=== PATIENT | female | born 1945 | race Caucasian/White ===

== ENCOUNTER 2017-08-20 23:12 | Inpatient (IN) | payer MEDICARE, OTHER ==
[2017-08-20] MEDS: SOD CHLORIDE 0.9% 1,000 ML IV (00:30)
[2017-08-21 00:41] LABS: ADD MAN DIFF? NO
[2017-08-21 00:44] LABS: WHITE BLOOD COUNT 15.2 10^3/ul (4.8-10.8)
[2017-08-21 00:44] LABS: ABNORMAL IP MESSAGE 1; BASOPHIL # 0.1 10^3/ul (0.0-0.1); BASOPHILS % 0.4 % (0.0-2.0); EOSINOPHILS % 0.1 % (0.0-7.0); HEMATOCRIT 40.1 % (37.0-47.0); HEMOGLOBIN 12.7 g/dl (12.0-16.0); LYMPHOCYTES # 0.6 10^3/ul (0.8-2.9); LYMPHOCYTES % 3.7 % (15.0-51.0); MEAN CORPUSCULAR HEMOGLOBIN 29.7 pg (29.0-33.0); MEAN CORPUSCULAR HGB CONC 31.7 g/dl (32.0-37.0); MEAN CORPUSCULAR VOLUME 93.7 fl (82.0-101.0); MEAN PLATELET VOLUME 10.3 fl (7.4-10.4); MONOCYTE # 0.6 10^3/ul (0.3-0.9); MONOCYTES % 4.1 % (0.0-11.0); NEUTROPHIL # 13.8 10^3/ul (1.6-7.5); NEUTROPHILS % 90.9 % (39.0-77.0); PLATELET COUNT 108 10^3/UL (140-415); RED BLOOD COUNT 4.28 10^6/ul (4.20-5.40); RED CELL DISTRIBUTION WIDTH 17.2 % (11.5-14.5)
[2017-08-21 00:47] LABS: POSITIVE DIFF @See below
[2017-08-21 01:02] LABS: INR 1.03; PROTIME 13.6 Sec (11.9-14.9); PT RATIO 1.1
[2017-08-21 01:12] LABS: ALANINE AMINOTRANSFERASE 25 IU/L (13-69); ALBUMIN/GLOBULIN RATIO 1.05; ALKALINE PHOSPHATASE 118 IU/L (42-121); ANION GAP 17 (8-16); ASPARTATE AMINO TRANSFERASE 27 IU/L (15-46); BILIRUBIN,INDIRECT 0.2 mg/dl (0-1.1); BILIRUBIN,TOTAL 0.2 mg/dl (0.2-1.3); BLOOD UREA NITROGEN 31 mg/dl (7-20); CALCIUM 9.6 mg/dl (8.4-10.2); CARBON DIOXIDE 24 mmol/L (21-31); CHLORIDE 107 mmol/L (97-110); CREATININE 1.17 mg/dl (0.44-1.00); GLUCOSE 143 mg/dl (70-220); LIPASE 17 U/L (23-300); POTASSIUM 3.7 mmol/L (3.5-5.1); SODIUM 144 mmol/L (135-144); TOTAL PROTEIN 7.8 g/dl (6.1-8.1)
[2017-08-21 01:13] LABS: LACTIC ACID 1.7 mmol/L (0.5-2.0)
[2017-08-21 01:29] LABS: TROPONIN-I 0.178 ng/ml (0.00-0.12)
[2017-08-21] MEDS: IBUPROFEN 600 MG TAB PO (01:32)
[2017-08-21] MEDS: CEFTRIAXONE 1 GM/50 ML (PMX) 50 ML IVPB (01:32)
[2017-08-21] MEDS: VANCOMYCIN 1 GM (PMX) 250 ML IVPB (01:32)
[2017-08-21] MEDS: SODIUM CHLORIDE 0.9% 1L BAG IV* (01:52)
[2017-08-21 02:07] LABS: ADD UMIC YES; UR AMORPHOUS CRYSTAL FEW /HPF (NONE SEEN); UR ASCORBIC ACID NEGATIVE (NEGATIVE); UR BACTERIA FEW /HPF (NONE SEEN); UR BILIRUBIN (Dip) NEGATIVE (NEGATIVE); UR BLOOD (Dip) 2+ mg/dL (NEGATIVE); UR CLARITY TURBID (CLEAR); UR COLOR AMBER (YELLOW); UR GLUCOSE (Dip) NEGATIVE (NEGATIVE); UR KETONES (Dip) NEGATIVE (NEGATIVE); UR LEUKOCYTE ESTERASE (Dip) 3+ Leu/ul (NEGATIVE); UR NITRITE (Dip) POSITIVE (NEGATIVE); UR NONSQUAMOUS EPITHELIAL CELL 1 /HPF (NONE SEEN); UR RBC 16 /HPF (0-5); UR TOTAL PROTEIN (Dip) 2+ mg/dl (NEGATIVE); UR UROBILINOGEN (Dip) 1+ mg/dL (NEGATIVE); UR WBC > 182 /HPF (0-5)
[2017-08-21] MEDS: ASPIRIN 81 MG TAB PO (02:17)
[2017-08-21] MEDS: SOD CHLORIDE 0.9% 1,000 ML IV ×2 (03:08→21:19)
[2017-08-21] MEDS ORDERED: ALBUTEROL/IPRATROPIUM (NEB) 3 ML AMP HHN (03:30)
[2017-08-21] MEDS ORDERED: AMIKACIN IV PER PHARMACY XX (03:30)
[2017-08-21] MEDS ORDERED: BISACODYL 10 MG SUPP PR (03:30)
[2017-08-21] MEDS ORDERED: NACL 0.9% 3 ML SYG IV (03:30)
[2017-08-21 04:10] LABS: LACTIC ACID 0.9 mmol/L (0.5-2.0)
[2017-08-21] MEDS: AMIKACIN 1,000 MG in SOD CHLORIDE 0.9% 100 ML IVPB (05:49)
[2017-08-21] MEDS: PYRIDOXINE 50 MG TAB PO ×2 (06:00→09:05)
[2017-08-21 06:38] LABS: WHITE BLOOD COUNT 9.9 10^3/ul (4.8-10.8)
[2017-08-21 06:38] LABS: ABNORMAL IP MESSAGE 1; HEMATOCRIT 32.2 % (37.0-47.0); HEMOGLOBIN 10.3 g/dl (12.0-16.0); MEAN CORPUSCULAR HEMOGLOBIN 30.5 pg (29.0-33.0); MEAN CORPUSCULAR VOLUME 95.3 fl (82.0-101.0); MEAN PLATELET VOLUME 10.5 fl (7.4-10.4); PLATELET COUNT 81 10^3/UL (140-415); RED BLOOD COUNT 3.38 10^6/ul (4.20-5.40); RED CELL DISTRIBUTION WIDTH 17.2 % (11.5-14.5)
[2017-08-21 06:40] LABS: ADD MAN DIFF? YES; POSITIVE DIFF @See below
[2017-08-21 07:14] LABS: LACTIC ACID 1.4 mmol/L (0.5-2.0)
[2017-08-21 07:20] LABS: ANISOCYTOSIS 2+ (0-0); BAND NEUTROPHILS #M 2.2 10^3/ul (0.0-0.6); BAND NEUTROPHILS % (M) 23 % (0-4); LYMPHOCYTES #M 0.5 10^3/ul (0.8-2.9); LYMPHOCYTES % (M) 6 % (15-51); MICROCYTOSIS 2+ (0-0); MONOCYTE #M 0.1 10^3/ul (0.3-0.9); MONOCYTES % (M) 2 % (0-11); PLATELET ESTIMATE DECREASED; POLYCHROMASIA 3+ (0-0); REACTIVE LYMPHOCYTES% (M) 1 % (0-0); SEG NEUT #M 6.9 10^3/ul (1.6-7.5); SEGMENTED NEUTROPHILS (M) % 68 % (39-77); SMUDGE%M 2 % (0-0)
[2017-08-21 07:21] LABS: ALANINE AMINOTRANSFERASE 26 IU/L (13-69); ALBUMIN 2.9 g/dl (3.3-4.9); ALBUMIN/GLOBULIN RATIO 0.85; ALKALINE PHOSPHATASE 92 IU/L (42-121); ANION GAP 12 (8-16); ASPARTATE AMINO TRANSFERASE 21 IU/L (15-46); BILIRUBIN,INDIRECT 0.2 mg/dl (0-1.1); BILIRUBIN,TOTAL 0.2 mg/dl (0.2-1.3); BLOOD UREA NITROGEN 26 mg/dl (7-20); CALCIUM 7.8 mg/dl (8.4-10.2); CARBON DIOXIDE 20 mmol/L (21-31); CHLORIDE 115 mmol/L (97-110); CREATININE 1.04 mg/dl (0.44-1.00); GLUCOSE 148 mg/dl (70-220); MAGNESIUM 1.3 mg/dl (1.7-2.5); POTASSIUM 3.4 mmol/L (3.5-5.1); SODIUM 144 mmol/L (135-144); TOTAL PROTEIN 6.3 g/dl (6.1-8.1)
[2017-08-21 07:26] LABS: CREATINE KINASE 75 IU/L (23-200)
[2017-08-21 07:30] LABS: CK INDEX 1.1
[2017-08-21] MEDS: HYDROmorphONE 1 MG/ML SYG IV (07:37)
[2017-08-21 07:48] LABS: TROPONIN-I 0.255 ng/ml (0.00-0.12)
[2017-08-21] MEDS: SENNA TAB PO ×2 (09:00→21:56)
[2017-08-21] MEDS: METHADONE 10 MG TAB PO ×4 (09:00→21:18)
[2017-08-21] MEDS: PANTOPRAZOLE (EC) 40 MG TAB PO (09:00)
[2017-08-21] MEDS: MEROPENEM 500MG/50 ML (PMX) 50 ML IVPB (09:00)
[2017-08-21] MEDS ORDERED: HEPARIN 5,000 UNIT/0.5 ML VIAL SC (09:00)
[2017-08-21] MEDS: FERROUS SULFATE (EC) 325 MG TAB PO (09:00)
[2017-08-21] MEDS: DOCUSATE SODIUM 100 MG CAP PO ×2 (09:00→21:56)
[2017-08-21] MEDS: ASCORBIC ACID 250 MG TAB PO (09:00)
[2017-08-21] MEDS: FUROSEMIDE 40 MG TAB PO (09:00)
[2017-08-21] MEDS: MULTIVITAMINS THERAPEUTIC TAB PO (09:05)
[2017-08-21] MEDS: ZINC SULFATE 220 MG CAP PO (09:05)
[2017-08-21] MEDS: MAGNESIUM OXIDE 400 MG TAB PO ×2 (09:05→21:56)
[2017-08-21] MEDS: HYDROmorphONE 2 MG TAB PO ×4 (09:55→21:18)
[2017-08-21] MEDS: NORepinephrine 8MG/250 ML (PMX 250 ML IV (14:43)
[2017-08-21] MEDS: KETOROLAC 15 MG INJ IV (16:36)
[2017-08-21 16:54] LABS: CREATINE KINASE 76 IU/L (23-200)
[2017-08-21 17:07] LABS: CK INDEX 1.3; CK-MB 0.99 ng/ml (0.0-2.4); TROPONIN-I 0.125 ng/ml (0.00-0.12)
[2017-08-21] MEDS: ACETAMINOPHEN 325 MG TAB PO (17:45)
[2017-08-21] MEDS: DULOXETINE 30 MG CAP DR PO (19:14)
[2017-08-21] MEDS: LIDOCAINE 1% (MPF) 5 ML VIAL SC (19:40)
[2017-08-21] MEDS: SOD CHLORIDE 0.9% 100 ML (20:30)
[2017-08-21] MEDS: RIVAROXABAN 20 MG TABLET PO (21:21)
[2017-08-21 21:48] LABS: AMIKACIN RANDOM 16.2 mg/L
[2017-08-21] MEDS: morphine 2 MG INJ IV (21:49)
[2017-08-21] MEDS: TAMSULOSIN (SR) 0.4 MG CAP PO (21:56)
[2017-08-21] MEDS ORDERED: PENDING SANTYL ORDER FOR WOUND CARE XX (23:00)
[2017-08-21] MEDS: NS + KCL 20 MEQ 1,000 ML IV (23:27)
[2017-08-22] MEDS: MEROPENEM 500MG/50 ML (PMX) 50 ML IVPB ×3 (00:24→21:00)
[2017-08-22] MEDS: PYRIDOXINE 50 MG TAB PO ×4 (00:24→22:06)
[2017-08-22] MEDS: KETOROLAC 15 MG INJ IV ×3 (00:38→14:41)
[2017-08-22] MEDS ORDERED: DEXTROSE 50% 50 ML SYRINGE IV ×2 (01:00)
[2017-08-22] MEDS ORDERED: COLLAGENASE TOP (01:00)
[2017-08-22] MEDS ORDERED: GLUCOSE GEL 15 GRAM TUBE PO ×2 (01:00)
[2017-08-22] MEDS ORDERED: GLUCOSE GEL 15 GRAM TUBE BUCCAL (01:00)
[2017-08-22] MEDS ORDERED: GLUCAGON 1 MG INJ IM (01:00)
[2017-08-22] MEDS: NS + KCL 20 MEQ 1,000 ML IV ×3 (02:00→21:57)
[2017-08-22] MEDS: HYDROmorphONE 2 MG TAB PO ×3 (02:07→17:10)
[2017-08-22] MEDS: ACCU-CHEK XX (02:09)
[2017-08-22] MEDS: ACETAMINOPHEN 325 MG TAB PO ×3 (04:13→18:29)
[2017-08-22 05:48] LABS: ADD MAN DIFF? NO
[2017-08-22 06:01] LABS: WHITE BLOOD COUNT 13.4 10^3/ul (4.8-10.8)
[2017-08-22 06:01] LABS: ABNORMAL IP MESSAGE 1; BASOPHIL # 0.1 10^3/ul (0.0-0.1); BASOPHILS % 0.4 % (0.0-2.0); EOSINOPHILS # 0.2 10^3/ul (0.0-0.5); EOSINOPHILS % 1.8 % (0.0-7.0); HEMATOCRIT 31.3 % (37.0-47.0); HEMOGLOBIN 9.9 g/dl (12.0-16.0); LYMPHOCYTES # 1.6 10^3/ul (0.8-2.9); LYMPHOCYTES % 12.2 % (15.0-51.0); MEAN CORPUSCULAR HEMOGLOBIN 30.5 pg (29.0-33.0); MEAN CORPUSCULAR HGB CONC 31.6 g/dl (32.0-37.0); MEAN CORPUSCULAR VOLUME 96.3 fl (82.0-101.0); MONOCYTES % 7.2 % (0.0-11.0); NEUTROPHIL # 10.4 10^3/ul (1.6-7.5); NEUTROPHILS % 77.8 % (39.0-77.0); PLATELET COUNT 57 10^3/UL (140-415); RED BLOOD COUNT 3.25 10^6/ul (4.20-5.40); RED CELL DISTRIBUTION WIDTH 17.7 % (11.5-14.5)
[2017-08-22 06:09] LABS: CHOL/HDL RATIO 5.2 RATIO; HDL CHOLESTEROL 14 mg/dl (33-92); TRIGLYCERIDES 350 mg/dl (0-149)
[2017-08-22 06:09] LABS: CHOLESTEROL 74 mg/dl (100-200)
[2017-08-22 06:10] LABS: CREATINE KINASE 46 IU/L (23-200)
[2017-08-22 06:19] LABS: ANION GAP 14 (8-16); BLOOD UREA NITROGEN 26 mg/dl (7-20); CALCIUM 7.7 mg/dl (8.4-10.2); CARBON DIOXIDE 20 mmol/L (21-31); CHLORIDE 116 mmol/L (97-110); CREATININE 0.96 mg/dl (0.44-1.00); GLUCOSE 170 mg/dl (70-220); MAGNESIUM 1.7 mg/dl (1.7-2.5); POTASSIUM 3.7 mmol/L (3.5-5.1); SODIUM 146 mmol/L (135-144)
[2017-08-22 06:24] LABS: CK INDEX 2.6; CK-MB 1.18 ng/ml (0.0-2.4)
[2017-08-22 07:02] LABS: POSITIVE DIFF @See below
[2017-08-22] MEDS: DOCUSATE SODIUM 100 MG CAP PO ×2 (08:11→20:44)
[2017-08-22] MEDS: DULOXETINE 30 MG CAP DR PO (08:11)
[2017-08-22] MEDS: SENNA TAB PO ×2 (08:12→20:44)
[2017-08-22] MEDS: ASCORBIC ACID 250 MG TAB PO (08:12)
[2017-08-22] MEDS: METHADONE 10 MG TAB PO ×3 (08:12→20:45)
[2017-08-22] MEDS: ZINC SULFATE 220 MG CAP PO (08:12)
[2017-08-22] MEDS: MULTIVITAMINS THERAPEUTIC TAB PO (08:13)
[2017-08-22] MEDS: FERROUS SULFATE (EC) 325 MG TAB PO (08:13)
[2017-08-22] MEDS: PANTOPRAZOLE (EC) 40 MG TAB PO (08:13)
[2017-08-22] MEDS: FUROSEMIDE 40 MG TAB PO (08:13)
[2017-08-22] MEDS: INSULIN GLARGINE [LANtus] 3 ML PEN SC (08:20)
[2017-08-22] MEDS: INSULIN ASPART [NOVOLOG] 3 ML PEN SC ×4 (08:21→20:47)
[2017-08-22] MEDS: MAGNESIUM OXIDE 400 MG TAB PO ×2 (08:30→21:56)
[2017-08-22] MEDS: COLLAGENASE TOP (09:00)
[2017-08-22] MEDS: COLLAGENASE 30 GM TUBE TOP (09:22)
[2017-08-22] MEDS: morphine 2 MG INJ IV (09:54)
[2017-08-22] MEDS: BALSAM PERU/CASTOR OIL 60 GM TUBE TOP (11:30)
[2017-08-22] MEDS: RIVAROXABAN 20 MG TABLET PO (17:10)
[2017-08-22] MEDS: TAMSULOSIN (SR) 0.4 MG CAP PO (20:44)
[2017-08-22] MEDS: morphine LIQ (10 MG/5 ML) CUP PO (22:16)
[2017-08-23] MEDS: ACCU-CHEK XX (02:00)
[2017-08-23] MEDS: PYRIDOXINE 50 MG TAB PO ×3 (05:06→21:50)
[2017-08-23] MEDS: HYDROmorphONE 2 MG TAB PO ×4 (05:06→17:10)
[2017-08-23] MEDS: AMIKACIN 1,000 MG in DEXTROSE 5% 100 ML IVPB (06:19)
[2017-08-23 07:20] LABS: ADD MAN DIFF? NO
[2017-08-23 07:29] LABS: ABNORMAL IP MESSAGE 1; BASOPHILS % 0.7 % (0.0-2.0); EOSINOPHILS # 0.2 10^3/ul (0.0-0.5); EOSINOPHILS % 2.7 % (0.0-7.0); HEMATOCRIT 30.1 % (37.0-47.0); HEMOGLOBIN 9.5 g/dl (12.0-16.0); LYMPHOCYTES # 0.8 10^3/ul (0.8-2.9); LYMPHOCYTES % 12.8 % (15.0-51.0); MEAN CORPUSCULAR HGB CONC 31.6 g/dl (32.0-37.0); MEAN PLATELET VOLUME 12.2 fl (7.4-10.4); MONOCYTE # 0.5 10^3/ul (0.3-0.9); MONOCYTES % 8.9 % (0.0-11.0); NEUTROPHIL # 4.4 10^3/ul (1.6-7.5); NEUTROPHILS % 74.4 % (39.0-77.0); PLATELET COUNT 45 10^3/UL (140-415); RED BLOOD COUNT 3.17 10^6/ul (4.20-5.40); RED CELL DISTRIBUTION WIDTH 17.3 % (11.5-14.5)
[2017-08-23 07:29] LABS: WHITE BLOOD COUNT 5.9 10^3/ul (4.8-10.8)
[2017-08-23 07:33] LABS: POSITIVE DIFF @See below
[2017-08-23 07:58] LABS: ANION GAP 12 (8-16); BLOOD UREA NITROGEN 22 mg/dl (7-20); CALCIUM 8.1 mg/dl (8.4-10.2); CARBON DIOXIDE 21 mmol/L (21-31); CHLORIDE 117 mmol/L (97-110); CREATININE 1.07 mg/dl (0.44-1.00); GLUCOSE 169 mg/dl (70-220); POTASSIUM 4.4 mmol/L (3.5-5.1); SODIUM 146 mmol/L (135-144)
[2017-08-23] MEDS: MEROPENEM 500MG/50 ML (PMX) 50 ML IVPB (08:13)
[2017-08-23] MEDS: MAGNESIUM OXIDE 400 MG TAB PO ×2 (08:13→20:48)
[2017-08-23] MEDS: DOCUSATE SODIUM 100 MG CAP PO ×2 (08:13→20:48)
[2017-08-23] MEDS: PANTOPRAZOLE (EC) 40 MG TAB PO (08:13)
[2017-08-23] MEDS: DULOXETINE 30 MG CAP DR PO (08:13)
[2017-08-23] MEDS: ZINC SULFATE 220 MG CAP PO (08:13)
[2017-08-23] MEDS: ASCORBIC ACID 250 MG TAB PO (08:13)
[2017-08-23] MEDS: SENNA TAB PO ×2 (08:13→20:48)
[2017-08-23] MEDS: MULTIVITAMINS THERAPEUTIC TAB PO (08:13)
[2017-08-23] MEDS: FERROUS SULFATE (EC) 325 MG TAB PO (08:13)
[2017-08-23] MEDS: METHADONE 10 MG TAB PO ×4 (08:14→20:49)
[2017-08-23] MEDS: BALSAM PERU/CASTOR OIL 60 GM TUBE TOP (08:14)
[2017-08-23] MEDS: FUROSEMIDE 40 MG TAB PO (08:14)
[2017-08-23] MEDS: COLLAGENASE TOP (08:15)
[2017-08-23] MEDS: INSULIN GLARGINE [LANtus] 3 ML PEN SC (08:24)
[2017-08-23] MEDS: INSULIN ASPART [NOVOLOG] 3 ML PEN SC ×4 (08:25→21:00)
[2017-08-23] MEDS: NS + KCL 20 MEQ 1,000 ML IV ×2 (09:29→17:10)
[2017-08-23] MEDS: ACETAMINOPHEN 325 MG TAB PO ×2 (15:13→21:47)
[2017-08-23] MEDS: RIVAROXABAN 20 MG TABLET PO (17:10)
[2017-08-23] MEDS: TAMSULOSIN (SR) 0.4 MG CAP PO (20:51)
[2017-08-24] MEDS: ACCU-CHEK XX (02:00)
[2017-08-24] MEDS: HYDROmorphONE 2 MG TAB PO ×4 (04:31→17:09)
[2017-08-24] MEDS: NS + KCL 20 MEQ 1,000 ML IV ×2 (04:32→13:53)
[2017-08-24] MEDS: PYRIDOXINE 50 MG TAB PO ×3 (05:23→21:43)
[2017-08-24 06:04] LABS: ADD MAN DIFF? NO
[2017-08-24 06:10] LABS: WHITE BLOOD COUNT 5.7 10^3/ul (4.8-10.8)
[2017-08-24 06:10] LABS: ABNORMAL IP MESSAGE 1; BASOPHILS % 0.7 % (0.0-2.0); EOSINOPHILS # 0.2 10^3/ul (0.0-0.5); LYMPHOCYTES # 1.2 10^3/ul (0.8-2.9); LYMPHOCYTES % 20.2 % (15.0-51.0); MEAN CORPUSCULAR HEMOGLOBIN 29.4 pg (29.0-33.0); MEAN CORPUSCULAR HGB CONC 31.3 g/dl (32.0-37.0); MEAN CORPUSCULAR VOLUME 94.1 fl (82.0-101.0); MEAN PLATELET VOLUME 10.9 fl (7.4-10.4); MONOCYTE # 0.6 10^3/ul (0.3-0.9); MONOCYTES % 9.8 % (0.0-11.0); NEUTROPHIL # 3.8 10^3/ul (1.6-7.5); NEUTROPHILS % 65.6 % (39.0-77.0); RED CELL DISTRIBUTION WIDTH 16.5 % (11.5-14.5)
[2017-08-24 06:49] LABS: PLATELET COUNT 69 10^3/UL (140-415); POSITIVE DIFF @See below
[2017-08-24 07:07] LABS: ANION GAP 12 (8-16); BLOOD UREA NITROGEN 22 mg/dl (7-20); CALCIUM 8.2 mg/dl (8.4-10.2); CARBON DIOXIDE 25 mmol/L (21-31); CHLORIDE 111 mmol/L (97-110); CREATININE 0.96 mg/dl (0.44-1.00); GLUCOSE 151 mg/dl (70-220); MAGNESIUM 1.7 mg/dl (1.7-2.5); PHOSPHORUS 2.6 mg/dl (2.5-4.9); POTASSIUM 3.8 mmol/L (3.5-5.1); SODIUM 144 mmol/L (135-144)
[2017-08-24] MEDS: METHADONE 10 MG TAB PO ×4 (08:14→20:48)
[2017-08-24] MEDS: DULOXETINE 30 MG CAP DR PO (08:14)
[2017-08-24] MEDS: DOCUSATE SODIUM 100 MG CAP PO ×2 (08:15→20:48)
[2017-08-24] MEDS: FERROUS SULFATE (EC) 325 MG TAB PO (08:15)
[2017-08-24] MEDS: COLLAGENASE TOP (08:15)
[2017-08-24] MEDS: ZINC SULFATE 220 MG CAP PO (08:15)
[2017-08-24] MEDS: ASCORBIC ACID 250 MG TAB PO (08:15)
[2017-08-24] MEDS: MULTIVITAMINS THERAPEUTIC TAB PO (08:15)
[2017-08-24] MEDS: SENNA TAB PO ×2 (08:15→20:47)
[2017-08-24] MEDS: FUROSEMIDE 40 MG TAB PO (08:15)
[2017-08-24] MEDS: PANTOPRAZOLE (EC) 40 MG TAB PO (08:15)
[2017-08-24] MEDS: MAGNESIUM OXIDE 400 MG TAB PO ×2 (08:15→20:48)
[2017-08-24] MEDS: BALSAM PERU/CASTOR OIL 60 GM TUBE TOP (08:16)
[2017-08-24] MEDS: INSULIN GLARGINE [LANtus] 3 ML PEN SC (08:17)
[2017-08-24] MEDS: INSULIN ASPART [NOVOLOG] 3 ML PEN SC ×4 (08:17→20:48)
[2017-08-24] MEDS: ACETAMINOPHEN 325 MG TAB PO ×2 (09:27→22:10)
[2017-08-24] MEDS: RIVAROXABAN 20 MG TABLET PO (17:09)
[2017-08-24] MEDS: TAMSULOSIN (SR) 0.4 MG CAP PO (20:48)
[2017-08-25] MEDS: METHADONE 10 MG TAB PO ×3 (00:18→14:08)
[2017-08-25] MEDS: HYDROmorphONE 2 MG TAB PO ×3 (00:18→11:40)
[2017-08-25] MEDS: NS + KCL 20 MEQ 1,000 ML IV (00:18)
[2017-08-25] MEDS: ACCU-CHEK XX (02:00)
[2017-08-25] MEDS: PYRIDOXINE 50 MG TAB PO ×2 (05:14→14:00)
[2017-08-25 05:21] LABS: ADD MAN DIFF? NO
[2017-08-25 05:27] LABS: ABNORMAL IP MESSAGE 1; BASOPHILS % 0.6 % (0.0-2.0); EOSINOPHILS # 0.2 10^3/ul (0.0-0.5); EOSINOPHILS % 2.6 % (0.0-7.0); HEMOGLOBIN 9.8 g/dl (12.0-16.0); LYMPHOCYTES # 1.4 10^3/ul (0.8-2.9); LYMPHOCYTES % 23.3 % (15.0-51.0); MEAN CORPUSCULAR HEMOGLOBIN 29.8 pg (29.0-33.0); MEAN CORPUSCULAR HGB CONC 32.7 g/dl (32.0-37.0); MEAN CORPUSCULAR VOLUME 91.2 fl (82.0-101.0); MEAN PLATELET VOLUME 10.7 fl (7.4-10.4); MONOCYTE # 0.6 10^3/ul (0.3-0.9); NEUTROPHIL # 3.9 10^3/ul (1.6-7.5); PLATELET COUNT 74 10^3/UL (140-415); RED BLOOD COUNT 3.29 10^6/ul (4.20-5.40); RED CELL DISTRIBUTION WIDTH 15.9 % (11.5-14.5)
[2017-08-25 05:27] LABS: WHITE BLOOD COUNT 6.2 10^3/ul (4.8-10.8)
[2017-08-25 05:36] LABS: POSITIVE DIFF @See below
[2017-08-25 05:46] LABS: ANION GAP 11 (8-16); BLOOD UREA NITROGEN 19 mg/dl (7-20); CALCIUM 8.5 mg/dl (8.4-10.2); CARBON DIOXIDE 28 mmol/L (21-31); CHLORIDE 108 mmol/L (97-110); CREATININE 0.87 mg/dl (0.44-1.00); GLUCOSE 155 mg/dl (70-220); MAGNESIUM 1.7 mg/dl (1.7-2.5); PHOSPHORUS 2.7 mg/dl (2.5-4.9); POTASSIUM 3.5 mmol/L (3.5-5.1); SODIUM 143 mmol/L (135-144)
[2017-08-25] MEDS: INSULIN ASPART [NOVOLOG] 3 ML PEN SC ×2 (08:00→12:03)
[2017-08-25] MEDS: INSULIN GLARGINE [LANtus] 3 ML PEN SC (08:00)
[2017-08-25] MEDS: SENNA TAB PO (08:26)
[2017-08-25] MEDS: DULOXETINE 30 MG CAP DR PO (08:26)
[2017-08-25] MEDS: DOCUSATE SODIUM 100 MG CAP PO (08:26)
[2017-08-25] MEDS: FERROUS SULFATE (EC) 325 MG TAB PO (08:26)
[2017-08-25] MEDS: MULTIVITAMINS THERAPEUTIC TAB PO (08:26)
[2017-08-25] MEDS: ZINC SULFATE 220 MG CAP PO (08:26)
[2017-08-25] MEDS: PANTOPRAZOLE (EC) 40 MG TAB PO (08:26)
[2017-08-25] MEDS: FUROSEMIDE 40 MG TAB PO (08:29)
[2017-08-25] MEDS: ASCORBIC ACID 250 MG TAB PO (08:29)
[2017-08-25] MEDS: MAGNESIUM OXIDE 400 MG TAB PO (08:29)
[2017-08-25] MEDS: BALSAM PERU/CASTOR OIL 60 GM TUBE TOP (08:31)
[2017-08-25] MEDS: COLLAGENASE TOP (09:00)
[2017-08-25] MEDS: AMIKACIN 1,000 MG in DEXTROSE 5% 100 ML IVPB (09:48)
[2017-08-25] MEDS: POTASSIUM CHLORIDE 20 MEQ in SOD CHLORIDE 0.9% 1,000 ML IV (10:00)
[2017-08-25] MEDS: ONDANSETRON 4 MG INJ IV (11:40)
[2017-08-25] MEDS: ACETAMINOPHEN 325 MG TAB PO (12:46)
== END 2017-08-25 15:48 | DRG 871 ==
LOC: E/R 23:12 → ICU 08-21 01:32 → MS4 08-22 18:25
PROVIDERS: Internal Medicine
PROC: 05H933Z Insertion of Infusion Device into Right Brachial Vein, Percutaneous Approach (ICD-10-PCS; principal; 2017-08-21)
PROC: B54MZZA Ultrasonography of Right Upper Extremity Veins, Guidance (ICD-10-PCS; 2017-08-21)
DX: A41.51 Sepsis due to Escherichia coli [E. coli] (principal); R65.21 Severe sepsis with septic shock; I21.A1 Myocardial infarction type 2; D69.6 Thrombocytopenia, unspecified; I11.0 Hypertensive heart disease with heart failure; I50.9 Heart failure, unspecified; E11.51 Type 2 diabetes mellitus with diabetic peripheral angiopathy without gangrene; N39.0 Urinary tract infection, site not specified; J44.1 Chronic obstructive pulmonary disease with (acute) exacerbation; E66.01 Morbid (severe) obesity due to excess calories; Z99.81 Dependence on supplemental oxygen; Z16.10 Resistance to unspecified beta lactam antibiotics; Z86.718 Personal history of other venous thrombosis and embolism; Z86.711 Personal history of pulmonary embolism; Z79.01 Long term (current) use of anticoagulants; M25.551 Pain in right hip; G89.4 Chronic pain syndrome; Z99.3 Dependence on wheelchair; Z87.891 Personal history of nicotine dependence; D64.9 Anemia, unspecified; Z68.36 Body mass index [BMI] 36.0-36.9, adult; Z95.0 Presence of cardiac pacemaker; N28.9 Disorder of kidney and ureter, unspecified; Z91.19 Patient's noncompliance with other medical treatment and regimen; Z87.440 Personal history of urinary (tract) infections; M19.90 Unspecified osteoarthritis, unspecified site; N76.1 Subacute and chronic vaginitis; I87.2 Venous insufficiency (chronic) (peripheral); K59.00 Constipation, unspecified; Z72.0 Tobacco use; Z91.11 Patient's noncompliance with dietary regimen; F41.9 Anxiety disorder, unspecified; F32.9 Major depressive disorder, single episode, unspecified
CPT/HCPCS: 36569; 71045; 73510; 76937; 80048; 80053; 80061; 80150; 81001; 82550; 82553; 82962; 83605; 83690; 83735; 84100; 84484; 85025; 85610; 85730; 87040; 87081; 87086; 87400; 93005; 93306; 96361; 96365; 96366; 96368; 96375; 99291-25

== ENCOUNTER 2017-09-04 16:38 | Inpatient (IN) | payer MEDICARE, OTHER ==
[2017-09-04] MEDS: SOD CHLORIDE 0.9% 1,000 ML IV (17:17)
[2017-09-04 17:23] LABS: ADD MAN DIFF? NO
[2017-09-04 17:25] LABS: WHITE BLOOD COUNT 11.7 10^3/ul (4.8-10.8)
[2017-09-04 17:25] LABS: BASOPHIL # 0.1 10^3/ul (0.0-0.1); BASOPHILS % 0.5 % (0.0-2.0); EOSINOPHILS # 0.3 10^3/ul (0.0-0.5); EOSINOPHILS % 2.3 % (0.0-7.0); HEMATOCRIT 38.8 % (37.0-47.0); HEMOGLOBIN 11.9 g/dl (12.0-16.0); LYMPHOCYTES # 1.3 10^3/ul (0.8-2.9); LYMPHOCYTES % 10.9 % (15.0-51.0); MEAN CORPUSCULAR HEMOGLOBIN 28.9 pg (29.0-33.0); MEAN CORPUSCULAR HGB CONC 30.7 g/dl (32.0-37.0); MEAN CORPUSCULAR VOLUME 94.2 fl (82.0-101.0); MEAN PLATELET VOLUME 10.9 fl (7.4-10.4); MONOCYTE # 1.1 10^3/ul (0.3-0.9); MONOCYTES % 9.1 % (0.0-11.0); NEUTROPHILS % 76.9 % (39.0-77.0); PLATELET COUNT 171 10^3/UL (140-415); RED BLOOD COUNT 4.12 10^6/ul (4.20-5.40); RED CELL DISTRIBUTION WIDTH 15.9 % (11.5-14.5)
[2017-09-04 17:47] LABS: ALANINE AMINOTRANSFERASE 24 IU/L (13-69); ALBUMIN 3.9 g/dl (3.3-4.9); ALBUMIN/GLOBULIN RATIO 1.08; ALKALINE PHOSPHATASE 117 IU/L (42-121); ANION GAP 19 (8-16); ASPARTATE AMINO TRANSFERASE 34 IU/L (15-46); BLOOD UREA NITROGEN 53 mg/dl (7-20); CALCIUM 8.4 mg/dl (8.4-10.2); CARBON DIOXIDE 22 mmol/L (21-31); CHLORIDE 104 mmol/L (97-110); CREATININE 2.22 mg/dl (0.44-1.00); GLUCOSE 118 mg/dl (70-220); LIPASE 33 U/L (23-300); POTASSIUM 4.8 mmol/L (3.5-5.1); SODIUM 140 mmol/L (135-144); TOTAL PROTEIN 7.5 g/dl (6.1-8.1)
[2017-09-04] MEDS: ONDANSETRON 4 MG INJ IV (19:25)
[2017-09-04] MEDS: ACETAMINOPHEN 325 MG TAB PO (21:10)
[2017-09-04 21:19] LABS: ADD UMIC YES; UR ASCORBIC ACID NEGATIVE (NEGATIVE); UR BACTERIA MODERATE /HPF (NONE SEEN); UR BILIRUBIN (Dip) NEGATIVE (NEGATIVE); UR BLOOD (Dip) 2+ mg/dL (NEGATIVE); UR CLARITY TURBID (CLEAR); UR COLOR AMBER (YELLOW); UR GLUCOSE (Dip) 1+ mg/dL (NEGATIVE); UR KETONES (Dip) TRACE mg/dL (NEGATIVE); UR LEUKOCYTE ESTERASE (Dip) 3+ Leu/ul (NEGATIVE); UR MUCUS MODERATE /HPF (NONE SEEN); UR NITRITE (Dip) NEGATIVE (NEGATIVE); UR NONSQUAMOUS EPITHELIAL CELL 1 /HPF (NONE SEEN); UR RBC 37 /HPF (0-5); UR SPECIFIC GRAVITY (Dip) 1.012 (1.003-1.030); UR SQUAMOUS EPITHELIAL CELL MANY /HPF (FEW); UR TOTAL PROTEIN (Dip) 1+ mg/dl (NEGATIVE); UR UROBILINOGEN (Dip) 2+ mg/dL (NEGATIVE); UR WBC 91 /HPF (0-5)
[2017-09-04] MEDS: CEFEPIME 1GM/50 ML (PMX) 50 ML IVPB (21:53)
[2017-09-05 01:18] LABS: LACTIC ACID 1.2 mmol/L (0.5-2.0)
[2017-09-05] MEDS: HYDROmorphONE 0.5 MG/0.5 ML SYG IV ×4 (01:58→20:05)
[2017-09-05] MEDS: morphine 2 MG INJ IV ×5 (02:32→21:58)
[2017-09-05] MEDS: DEXTROSE 5%-0.45% NACL 1,000 ML IV ×3 (02:34→21:30)
[2017-09-05] MEDS: ONDANSETRON 4 MG INJ IV ×5 (02:42→20:05)
[2017-09-05] MEDS ORDERED: AMIKACIN IV PER PHARMACY XX (04:00)
[2017-09-05] MEDS: AMIKACIN 600 MG in DEXTROSE 5% 100 ML IVPB (06:43)
[2017-09-05] MEDS: HEPARIN 5,000 UNIT/0.5 ML VIAL SC ×3 (06:45→22:20)
[2017-09-05] MEDS: HYDROmorphONE 2 MG/ML SYG IV (08:04)
[2017-09-05 12:20] LABS: ADD MAN DIFF? NO
[2017-09-05 12:22] LABS: BASOPHILS % 0.5 % (0.0-2.0); EOSINOPHILS # 0.1 10^3/ul (0.0-0.5); EOSINOPHILS % 1.7 % (0.0-7.0); HEMATOCRIT 37.8 % (37.0-47.0); LYMPHOCYTES # 1.1 10^3/ul (0.8-2.9); LYMPHOCYTES % 12.9 % (15.0-51.0); MEAN CORPUSCULAR HEMOGLOBIN 29.6 pg (29.0-33.0); MEAN CORPUSCULAR HGB CONC 31.7 g/dl (32.0-37.0); MEAN CORPUSCULAR VOLUME 93.3 fl (82.0-101.0); MEAN PLATELET VOLUME 10.6 fl (7.4-10.4); MONOCYTES % 12.3 % (0.0-11.0); NEUTROPHILS % 72.1 % (39.0-77.0); PLATELET COUNT 147 10^3/UL (140-415); RED BLOOD COUNT 4.05 10^6/ul (4.20-5.40); RED CELL DISTRIBUTION WIDTH 15.8 % (11.5-14.5)
[2017-09-05 12:22] LABS: WHITE BLOOD COUNT 8.2 10^3/ul (4.8-10.8)
[2017-09-05 12:43] LABS: ALANINE AMINOTRANSFERASE 22 IU/L (13-69); ALBUMIN 3.9 g/dl (3.3-4.9); ALBUMIN/GLOBULIN RATIO 1.08; ALKALINE PHOSPHATASE 102 IU/L (42-121); ANION GAP 17 (8-16); ASPARTATE AMINO TRANSFERASE 26 IU/L (15-46); BILIRUBIN,INDIRECT 0.1 mg/dl (0-1.1); BILIRUBIN,TOTAL 0.1 mg/dl (0.2-1.3); BLOOD UREA NITROGEN 44 mg/dl (7-20); CALCIUM 8.3 mg/dl (8.4-10.2); CARBON DIOXIDE 26 mmol/L (21-31); CHLORIDE 104 mmol/L (97-110); CREATININE 1.45 mg/dl (0.44-1.00); GLUCOSE 169 mg/dl (70-220); MAGNESIUM 1.7 mg/dl (1.7-2.5); PHOSPHORUS 4.1 mg/dl (2.5-4.9); POTASSIUM 4.7 mmol/L (3.5-5.1); SODIUM 142 mmol/L (135-144); TOTAL PROTEIN 7.5 g/dl (6.1-8.1)
[2017-09-05] MEDS: CEFEPIME 1GM/50 ML (PMX) 50 ML IVPB (13:31)
[2017-09-05 14:46] LABS: CREATININE,URINE RANDOM 35.58 mg/dl (20-320)
[2017-09-05 14:52] LABS: CREATININE,URINE RANDOM 35.49 mg/dl (20-320)
[2017-09-05 14:52] LABS: SODIUM,URINE RANDOM 79 mmol/L (30-90)
[2017-09-05] MEDS ORDERED: LORAZEPAM 2 MG INJ IV (17:30)
[2017-09-05] MEDS: hydrALAzine 20 MG INJ IV (21:59)
[2017-09-06] MEDS: HYDROmorphONE 0.5 MG/0.5 ML SYG IV ×4 (00:02→23:49)
[2017-09-06] MEDS: ONDANSETRON 4 MG INJ IV ×3 (00:06→07:43)
[2017-09-06] MEDS: DEXTROSE 5%-0.45% NACL 1,000 ML IV ×3 (01:48→12:08)
[2017-09-06] MEDS: morphine 2 MG INJ IV ×2 (02:00→07:58)
[2017-09-06] MEDS: HEPARIN 5,000 UNIT/0.5 ML VIAL SC ×3 (05:22→23:53)
[2017-09-06 06:22] LABS: ADD MAN DIFF? NO
[2017-09-06 06:33] LABS: BASOPHILS % 0.3 % (0.0-2.0); EOSINOPHILS % 0.5 % (0.0-7.0); HEMATOCRIT 39.7 % (37.0-47.0); LYMPHOCYTES % 15.1 % (15.0-51.0); MEAN CORPUSCULAR HEMOGLOBIN 30.3 pg (29.0-33.0); MEAN CORPUSCULAR HGB CONC 32.7 g/dl (32.0-37.0); MEAN CORPUSCULAR VOLUME 92.5 fl (82.0-101.0); MEAN PLATELET VOLUME 11.1 fl (7.4-10.4); MONOCYTE # 0.8 10^3/ul (0.3-0.9); NEUTROPHIL # 4.5 10^3/ul (1.6-7.5); NEUTROPHILS % 70.6 % (39.0-77.0); PLATELET COUNT 161 10^3/UL (140-415); RED BLOOD COUNT 4.29 10^6/ul (4.20-5.40); RED CELL DISTRIBUTION WIDTH 15.6 % (11.5-14.5)
[2017-09-06 06:33] LABS: WHITE BLOOD COUNT 6.3 10^3/ul (4.8-10.8)
[2017-09-06 06:51] LABS: MAGNESIUM 1.5 mg/dl (1.7-2.5)
[2017-09-06 06:57] LABS: ALANINE AMINOTRANSFERASE 19 IU/L (13-69); ALBUMIN/GLOBULIN RATIO 1.05; ALKALINE PHOSPHATASE 117 IU/L (42-121); ANION GAP 18 (8-16); ASPARTATE AMINO TRANSFERASE 22 IU/L (15-46); BLOOD UREA NITROGEN 26 mg/dl (7-20); CALCIUM 8.9 mg/dl (8.4-10.2); CARBON DIOXIDE 31 mmol/L (21-31); CHLORIDE 103 mmol/L (97-110); CREATININE 1.01 mg/dl (0.44-1.00); GLUCOSE 199 mg/dl (70-220); POTASSIUM 3.7 mmol/L (3.5-5.1); SODIUM 148 mmol/L (135-144); TOTAL PROTEIN 7.8 g/dl (6.1-8.1)
[2017-09-06] MEDS: CEFEPIME 1GM/50 ML (PMX) 50 ML IVPB (07:48)
[2017-09-06] MEDS: ONDANSETRON INJ 8 MG in DEXTROSE 5% 50 ML IV (11:33)
[2017-09-06] MEDS: LORAZEPAM 0.5 MG TAB PO (12:05)
[2017-09-06] MEDS: MAGNESIUM SULFATE 3 GM in DEXTROSE 5% 100 ML IVPB (13:14)
[2017-09-06] MEDS: IOHEXOL 300MG/ML 150 ML BTL ×2 (13:38)
[2017-09-06] MEDS: DEXTROSE 5%-0.225% NACL 1,000 ML IV (18:41)
[2017-09-07] MEDS: ONDANSETRON INJ 8 MG in DEXTROSE 5% 50 ML IV ×4 (00:45→21:34)
[2017-09-07] MEDS: HEPARIN 5,000 UNIT/0.5 ML VIAL SC ×3 (05:42→21:33)
[2017-09-07] MEDS: HYDROmorphONE 0.5 MG/0.5 ML SYG IV ×5 (06:43→21:34)
[2017-09-07 09:15] LABS: ADD MAN DIFF? NO
[2017-09-07 09:16] LABS: BASOPHIL # 0.1 10^3/ul (0.0-0.1); BASOPHILS % 0.9 % (0.0-2.0); EOSINOPHILS # 0.1 10^3/ul (0.0-0.5); EOSINOPHILS % 1.2 % (0.0-7.0); HEMATOCRIT 39.2 % (37.0-47.0); HEMOGLOBIN 12.5 g/dl (12.0-16.0); LYMPHOCYTES # 1.5 10^3/ul (0.8-2.9); LYMPHOCYTES % 22.8 % (15.0-51.0); MEAN CORPUSCULAR HEMOGLOBIN 29.4 pg (29.0-33.0); MEAN CORPUSCULAR HGB CONC 31.9 g/dl (32.0-37.0); MEAN CORPUSCULAR VOLUME 92.2 fl (82.0-101.0); MEAN PLATELET VOLUME 10.4 fl (7.4-10.4); MONOCYTE # 1.3 10^3/ul (0.3-0.9); MONOCYTES % 19.7 % (0.0-11.0); NEUTROPHIL # 3.6 10^3/ul (1.6-7.5); NEUTROPHILS % 55.1 % (39.0-77.0); PLATELET COUNT 168 10^3/UL (140-415); RED BLOOD COUNT 4.25 10^6/ul (4.20-5.40); RED CELL DISTRIBUTION WIDTH 15.5 % (11.5-14.5)
[2017-09-07 09:16] LABS: WHITE BLOOD COUNT 6.6 10^3/ul (4.8-10.8)
[2017-09-07] MEDS: CEFEPIME 1GM/50 ML (PMX) 50 ML IVPB ×2 (09:16→22:17)
[2017-09-07 09:36] LABS: ALANINE AMINOTRANSFERASE 22 IU/L (13-69); ALBUMIN 3.8 g/dl (3.3-4.9); ALBUMIN/GLOBULIN RATIO 1.02; ALKALINE PHOSPHATASE 103 IU/L (42-121); ANION GAP 16 (8-16); ASPARTATE AMINO TRANSFERASE 22 IU/L (15-46); BILIRUBIN,INDIRECT 0.1 mg/dl (0-1.1); BILIRUBIN,TOTAL 0.1 mg/dl (0.2-1.3); BLOOD UREA NITROGEN 21 mg/dl (7-20); CARBON DIOXIDE 31 mmol/L (21-31); CHLORIDE 103 mmol/L (97-110); CREATININE 0.96 mg/dl (0.44-1.00); GLUCOSE 167 mg/dl (70-220); POTASSIUM 3.4 mmol/L (3.5-5.1); SODIUM 147 mmol/L (135-144); TOTAL PROTEIN 7.5 g/dl (6.1-8.1)
[2017-09-07 09:53] LABS: MAGNESIUM 2.4 mg/dl (1.7-2.5)
[2017-09-07] MEDS: DEXTROSE 5%-0.225% NACL 1,000 ML IV (11:00)
[2017-09-07] MEDS: POTASSIUM CHLORIDE 100 ML IVPB ×2 (15:10→15:30)
[2017-09-07] MEDS: DEXTROSE 5% 1,000 ML IV (15:57)
[2017-09-08] MEDS: HYDROmorphONE 0.5 MG/0.5 ML SYG IV ×6 (01:35→21:46)
[2017-09-08] MEDS: HEPARIN 5,000 UNIT/0.5 ML VIAL SC ×3 (05:43→21:15)
[2017-09-08 06:31] LABS: ADD MAN DIFF? NO
[2017-09-08 06:42] LABS: BASOPHILS % 0.7 % (0.0-2.0); EOSINOPHILS # 0.1 10^3/ul (0.0-0.5); EOSINOPHILS % 2.1 % (0.0-7.0); HEMATOCRIT 38.8 % (37.0-47.0); HEMOGLOBIN 12.1 g/dl (12.0-16.0); LYMPHOCYTES # 1.4 10^3/ul (0.8-2.9); LYMPHOCYTES % 23.3 % (15.0-51.0); MEAN CORPUSCULAR HEMOGLOBIN 28.8 pg (29.0-33.0); MEAN CORPUSCULAR HGB CONC 31.2 g/dl (32.0-37.0); MEAN CORPUSCULAR VOLUME 92.4 fl (82.0-101.0); MEAN PLATELET VOLUME 10.6 fl (7.4-10.4); MONOCYTE # 1.1 10^3/ul (0.3-0.9); MONOCYTES % 17.4 % (0.0-11.0); NEUTROPHIL # 3.4 10^3/ul (1.6-7.5); NEUTROPHILS % 55.8 % (39.0-77.0); PLATELET COUNT 151 10^3/UL (140-415); RED CELL DISTRIBUTION WIDTH 15.1 % (11.5-14.5)
[2017-09-08 06:42] LABS: WHITE BLOOD COUNT 6.2 10^3/ul (4.8-10.8)
[2017-09-08 07:26] LABS: ALBUMIN/GLOBULIN RATIO 1.02; ANION GAP 11 (8-16)
[2017-09-08 07:49] LABS: ALANINE AMINOTRANSFERASE 21 IU/L (13-69); ALBUMIN 3.6 g/dl (3.3-4.9); ALKALINE PHOSPHATASE 98 IU/L (42-121); ASPARTATE AMINO TRANSFERASE 21 IU/L (15-46); BILIRUBIN,INDIRECT 0.1 mg/dl (0-1.1); BILIRUBIN,TOTAL 0.1 mg/dl (0.2-1.3); BLOOD UREA NITROGEN 20 mg/dl (7-20); CALCIUM 9.1 mg/dl (8.4-10.2); CARBON DIOXIDE 34 mmol/L (21-31); CHLORIDE 100 mmol/L (97-110); CREATININE 0.98 mg/dl (0.44-1.00); GLUCOSE 143 mg/dl (70-220); POTASSIUM 3.6 mmol/L (3.5-5.1); SODIUM 141 mmol/L (135-144); TOTAL PROTEIN 7.1 g/dl (6.1-8.1)
[2017-09-08] MEDS: CEFEPIME 1GM/50 ML (PMX) 50 ML IVPB (09:37)
[2017-09-08] MEDS: ONDANSETRON INJ 8 MG in DEXTROSE 5% 50 ML IV ×4 (09:41→23:14)
[2017-09-08 12:45] LABS: LACTIC ACID 0.9 mmol/L (0.5-2.0)
[2017-09-08] MEDS: LORAZEPAM 2 MG INJ IV (14:00)
[2017-09-08] MEDS: SOD CHLORIDE 0.9% 1,000 ML IV (16:30)
[2017-09-08] MEDS: MEROPENEM 500MG/50 ML (PMX) 50 ML IVPB (21:14)
[2017-09-09] MEDS: HYDROmorphONE 0.5 MG/0.5 ML SYG IV ×6 (01:55→21:30)
[2017-09-09 05:47] LABS: ADD MAN DIFF? NO
[2017-09-09 05:55] LABS: WHITE BLOOD COUNT 7.9 10^3/ul (4.8-10.8)
[2017-09-09 05:55] LABS: BASOPHIL # 0.1 10^3/ul (0.0-0.1); BASOPHILS % 0.6 % (0.0-2.0); EOSINOPHILS # 0.1 10^3/ul (0.0-0.5); EOSINOPHILS % 1.3 % (0.0-7.0); HEMATOCRIT 38.1 % (37.0-47.0); HEMOGLOBIN 11.9 g/dl (12.0-16.0); LYMPHOCYTES # 1.6 10^3/ul (0.8-2.9); LYMPHOCYTES % 19.9 % (15.0-51.0); MEAN CORPUSCULAR HGB CONC 31.2 g/dl (32.0-37.0); MEAN CORPUSCULAR VOLUME 92.7 fl (82.0-101.0); MEAN PLATELET VOLUME 10.6 fl (7.4-10.4); MONOCYTE # 1.3 10^3/ul (0.3-0.9); MONOCYTES % 16.2 % (0.0-11.0); NEUTROPHIL # 4.8 10^3/ul (1.6-7.5); NEUTROPHILS % 61.1 % (39.0-77.0); PLATELET COUNT 149 10^3/UL (140-415); RED BLOOD COUNT 4.11 10^6/ul (4.20-5.40)
[2017-09-09 06:09] LABS: INR 1.09; PROTIME 14.2 Sec (11.9-14.9); PT RATIO 1.1
[2017-09-09 06:10] LABS: LACTIC ACID 0.9 mmol/L (0.5-2.0)
[2017-09-09 06:10] LABS: PARTIAL THROMBOPLASTIN TIME 31.3 Sec (25.0-35.0)
[2017-09-09] MEDS: HEPARIN 5,000 UNIT/0.5 ML VIAL SC ×3 (06:23→21:28)
[2017-09-09 06:32] LABS: ALANINE AMINOTRANSFERASE 24 IU/L (13-69); ALBUMIN 3.6 g/dl (3.3-4.9); ALKALINE PHOSPHATASE 86 IU/L (42-121); ANION GAP 16 (8-16); ASPARTATE AMINO TRANSFERASE 21 IU/L (15-46); BILIRUBIN,INDIRECT 0.2 mg/dl (0-1.1); BILIRUBIN,TOTAL 0.2 mg/dl (0.2-1.3); BLOOD UREA NITROGEN 15 mg/dl (7-20); CALCIUM 9.1 mg/dl (8.4-10.2); CARBON DIOXIDE 31 mmol/L (21-31); CHLORIDE 98 mmol/L (97-110); CREATININE 0.95 mg/dl (0.44-1.00); GLUCOSE 129 mg/dl (70-220); LIPASE 40 U/L (23-300); MAGNESIUM 1.8 mg/dl (1.7-2.5); PHOSPHORUS 2.9 mg/dl (2.5-4.9); POTASSIUM 3.5 mmol/L (3.5-5.1); SODIUM 141 mmol/L (135-144); TOTAL PROTEIN 7.2 g/dl (6.1-8.1)
[2017-09-09 06:33] LABS: B-TYPE NATRIURETIC PEPTIDE 513 PG/ML (0-125)
[2017-09-09] MEDS: ONDANSETRON INJ 8 MG in DEXTROSE 5% 50 ML IV ×3 (06:43→22:31)
[2017-09-09 07:43] LABS: AMYLASE 57 U/L (11-123)
[2017-09-09] MEDS: MEROPENEM 500MG/50 ML (PMX) 50 ML IVPB ×2 (10:29→21:27)
[2017-09-09] MEDS: SOD CHLORIDE 0.9% 1,000 ML IV (13:23)
[2017-09-09] MEDS ORDERED: PENDING SANTYL ORDER FOR WOUND CARE XX (17:30)
[2017-09-09] MEDS ORDERED: COLLAGENASE 30 GM TUBE TOP (20:00)
[2017-09-09] MEDS: COLLAGENASE 30 GM TUBE TOP (21:30)
[2017-09-10] MEDS: HYDROmorphONE 0.5 MG/0.5 ML SYG IV ×6 (01:35→22:15)
[2017-09-10] MEDS: ONDANSETRON INJ 8 MG in DEXTROSE 5% 50 ML IV ×3 (04:59→23:26)
[2017-09-10] MEDS: HEPARIN 5,000 UNIT/0.5 ML VIAL SC ×3 (06:10→22:41)
[2017-09-10] MEDS: SOD CHLORIDE 0.9% 1,000 ML IV ×2 (08:30→10:10)
[2017-09-10] MEDS ORDERED: COLLAGENASE 30 GM TUBE TOP (09:00)
[2017-09-10] MEDS: MEROPENEM 500MG/50 ML (PMX) 50 ML IVPB ×2 (09:05→22:40)
[2017-09-10] MEDS: COLLAGENASE 30 GM TUBE TOP (21:00)
[2017-09-11] MEDS: HYDROmorphONE 0.5 MG/0.5 ML SYG IV ×6 (02:23→23:15)
[2017-09-11] MEDS: HEPARIN 5,000 UNIT/0.5 ML VIAL SC ×3 (06:14→23:15)
[2017-09-11] MEDS: SOD CHLORIDE 0.9% 1,000 ML IV (06:30)
[2017-09-11 06:38] LABS: ADD MAN DIFF? NO
[2017-09-11 06:47] LABS: BASOPHILS % 0.5 % (0.0-2.0); EOSINOPHILS # 0.1 10^3/ul (0.0-0.5); EOSINOPHILS % 1.3 % (0.0-7.0); HEMATOCRIT 35.6 % (37.0-47.0); HEMOGLOBIN 11.4 g/dl (12.0-16.0); LYMPHOCYTES # 1.5 10^3/ul (0.8-2.9); LYMPHOCYTES % 18.4 % (15.0-51.0); MEAN CORPUSCULAR HEMOGLOBIN 29.5 pg (29.0-33.0); MEAN PLATELET VOLUME 10.8 fl (7.4-10.4); NEUTROPHIL # 5.5 10^3/ul (1.6-7.5); NEUTROPHILS % 65.3 % (39.0-77.0); PLATELET COUNT 126 10^3/UL (140-415); RED BLOOD COUNT 3.87 10^6/ul (4.20-5.40); RED CELL DISTRIBUTION WIDTH 14.8 % (11.5-14.5)
[2017-09-11 06:47] LABS: WHITE BLOOD COUNT 8.4 10^3/ul (4.8-10.8)
[2017-09-11 07:01] LABS: INR 1.09; PROTIME 14.2 Sec (11.9-14.9); PT RATIO 1.1
[2017-09-11 07:02] LABS: PARTIAL THROMBOPLASTIN TIME 32.1 Sec (25.0-35.0)
[2017-09-11 07:12] LABS: ALANINE AMINOTRANSFERASE 21 IU/L (13-69); ALBUMIN 3.4 g/dl (3.3-4.9); ALBUMIN/GLOBULIN RATIO 1.03; ALKALINE PHOSPHATASE 105 IU/L (42-121); ANION GAP 19 (8-16); ASPARTATE AMINO TRANSFERASE 20 IU/L (15-46); BILIRUBIN,INDIRECT 0.1 mg/dl (0-1.1); BILIRUBIN,TOTAL 0.1 mg/dl (0.2-1.3); BLOOD UREA NITROGEN 14 mg/dl (7-20); CARBON DIOXIDE 29 mmol/L (21-31); CHLORIDE 101 mmol/L (97-110); CREATININE 0.76 mg/dl (0.44-1.00); GLUCOSE 126 mg/dl (70-220); LIPASE 38 U/L (23-300); MAGNESIUM 1.7 mg/dl (1.7-2.5); PHOSPHORUS 2.6 mg/dl (2.5-4.9); SODIUM 146 mmol/L (135-144); TOTAL PROTEIN 6.7 g/dl (6.1-8.1)
[2017-09-11 07:13] LABS: B-TYPE NATRIURETIC PEPTIDE 1130 PG/ML (0-125)
[2017-09-11] MEDS: MEROPENEM 500MG/50 ML (PMX) 50 ML IVPB (09:00)
[2017-09-11] MEDS: COLLAGENASE 30 GM TUBE TOP (09:00)
[2017-09-11] MEDS: POTASSIUM CHLORIDE (SR) 20 MEQ TAB PO (17:27)
[2017-09-12] MEDS: ONDANSETRON INJ 8 MG in DEXTROSE 5% 50 ML IV (01:51)
[2017-09-12] MEDS: HYDROmorphONE 0.5 MG/0.5 ML SYG IV ×4 (03:14→15:44)
[2017-09-12] MEDS: HEPARIN 5,000 UNIT/0.5 ML VIAL SC ×3 (06:54→22:07)
[2017-09-12] MEDS: KETOROLAC 15 MG INJ IV (19:51)
[2017-09-12] MEDS ORDERED: HYDROmorphONE 0.5 MG/0.5 ML SYG IV (21:30)
[2017-09-13] MEDS: METHADONE 10 MG TAB PO ×4 (00:17→18:18)
[2017-09-13] MEDS: KETOROLAC 15 MG INJ IV (02:13)
[2017-09-13] MEDS: HEPARIN 5,000 UNIT/0.5 ML VIAL SC ×3 (05:42→21:12)
[2017-09-13] MEDS: ONDANSETRON INJ 8 MG in DEXTROSE 5% 50 ML IV ×4 (06:03→21:12)
[2017-09-13] MEDS: POLYETHYLENE GLYCOL 17 GM PACKET PO ×2 (12:37→21:00)
[2017-09-13] MEDS: LIDOCAINE 5% PATCH TD (12:41)
[2017-09-13] MEDS: HYDROmorphONE 2 MG TAB PO ×2 (17:25→23:32)
[2017-09-14] MEDS: METHADONE 10 MG TAB PO ×4 (00:19→17:18)
[2017-09-14] MEDS: ONDANSETRON INJ 8 MG in DEXTROSE 5% 50 ML IV ×2 (05:16→14:43)
[2017-09-14] MEDS: HEPARIN 5,000 UNIT/0.5 ML VIAL SC ×3 (05:18→22:03)
[2017-09-14] MEDS: HYDROmorphONE 2 MG TAB PO ×3 (06:32→18:37)
[2017-09-14] MEDS: POLYETHYLENE GLYCOL 17 GM PACKET PO ×2 (10:41→21:00)
[2017-09-14 15:21] LABS: ADD MAN DIFF? NO
[2017-09-14 15:38] LABS: ABNORMAL IP MESSAGE 1; BASOPHIL # 0.1 10^3/ul (0.0-0.1); BASOPHILS % 0.5 % (0.0-2.0); EOSINOPHILS # 0.2 10^3/ul (0.0-0.5); EOSINOPHILS % 2.4 % (0.0-7.0); HEMATOCRIT 36.1 % (37.0-47.0); HEMOGLOBIN 11.5 g/dl (12.0-16.0); LYMPHOCYTES # 1.6 10^3/ul (0.8-2.9); LYMPHOCYTES % 15.9 % (15.0-51.0); MEAN CORPUSCULAR HEMOGLOBIN 29.4 pg (29.0-33.0); MEAN CORPUSCULAR HGB CONC 31.9 g/dl (32.0-37.0); MEAN CORPUSCULAR VOLUME 92.3 fl (82.0-101.0); MEAN PLATELET VOLUME 11.1 fl (7.4-10.4); MONOCYTE # 0.8 10^3/ul (0.3-0.9); MONOCYTES % 8.2 % (0.0-11.0); NEUTROPHILS % 70.4 % (39.0-77.0); PLATELET COUNT 90 10^3/UL (140-415); RED BLOOD COUNT 3.91 10^6/ul (4.20-5.40); RED CELL DISTRIBUTION WIDTH 14.8 % (11.5-14.5)
[2017-09-14 15:42] LABS: ANION GAP 13 (8-16); BLOOD UREA NITROGEN 8 mg/dl (7-20); CALCIUM 8.8 mg/dl (8.4-10.2); CARBON DIOXIDE 32 mmol/L (21-31); CHLORIDE 103 mmol/L (97-110); GLUCOSE 144 mg/dl (70-220); POTASSIUM 3.1 mmol/L (3.5-5.1); SODIUM 145 mmol/L (135-144)
[2017-09-14 16:08] LABS: POSITIVE DIFF @See below
[2017-09-14] MEDS: POTASSIUM CHLORIDE 100 ML IVPB ×2 (17:13→21:16)
[2017-09-15] MEDS: METHADONE 10 MG TAB PO ×4 (00:21→17:43)
[2017-09-15] MEDS: POTASSIUM CHLORIDE 100 ML IVPB (01:17)
[2017-09-15] MEDS: HYDROmorphONE 2 MG TAB PO ×4 (01:22→19:59)
[2017-09-15] MEDS: HYDROCODONE/APAP (5/325) TAB PO ×5 (06:25→23:18)
[2017-09-15] MEDS: HEPARIN 5,000 UNIT/0.5 ML VIAL SC ×3 (06:26→22:07)
[2017-09-15] MEDS: POLYETHYLENE GLYCOL 17 GM PACKET PO ×2 (09:00→20:52)
[2017-09-15] MEDS: POTASSIUM CHLORIDE (SR) 20 MEQ TAB PO ×2 (13:42→17:44)
[2017-09-15] MEDS: D5-NS + KCL 40 MEQ 1,000 ML IV (13:42)
[2017-09-16] MEDS: METHADONE 10 MG TAB PO ×3 (00:10→12:17)
[2017-09-16] MEDS: HYDROmorphONE 2 MG TAB PO ×3 (01:56→15:18)
[2017-09-16] MEDS: D5-NS + KCL 40 MEQ 1,000 ML IV (03:17)
[2017-09-16] MEDS: HYDROCODONE/APAP (5/325) TAB PO ×2 (03:19→07:54)
[2017-09-16] MEDS: HEPARIN 5,000 UNIT/0.5 ML VIAL SC ×2 (06:04→13:46)
[2017-09-16] MEDS: POLYETHYLENE GLYCOL 17 GM PACKET PO (09:00)
[2017-09-16 10:20] LABS: ADD MAN DIFF? NO
[2017-09-16 10:24] LABS: WHITE BLOOD COUNT 7.9 10^3/ul (4.8-10.8)
[2017-09-16 10:24] LABS: ABNORMAL IP MESSAGE 1; BASOPHILS % 0.5 % (0.0-2.0); EOSINOPHILS # 0.2 10^3/ul (0.0-0.5); EOSINOPHILS % 2.9 % (0.0-7.0); HEMATOCRIT 35.7 % (37.0-47.0); LYMPHOCYTES # 1.4 10^3/ul (0.8-2.9); LYMPHOCYTES % 18.3 % (15.0-51.0); MEAN CORPUSCULAR HEMOGLOBIN 28.9 pg (29.0-33.0); MEAN CORPUSCULAR HGB CONC 30.8 g/dl (32.0-37.0); MEAN CORPUSCULAR VOLUME 93.9 fl (82.0-101.0); MEAN PLATELET VOLUME 11.1 fl (7.4-10.4); MONOCYTE # 0.7 10^3/ul (0.3-0.9); MONOCYTES % 8.5 % (0.0-11.0); NEUTROPHIL # 5.3 10^3/ul (1.6-7.5); NEUTROPHILS % 67.3 % (39.0-77.0); PLATELET COUNT 77 10^3/UL (140-415); RED CELL DISTRIBUTION WIDTH 14.8 % (11.5-14.5)
[2017-09-16 10:29] LABS: POSITIVE DIFF @See below
[2017-09-16 10:43] LABS: ANION GAP 15 (8-16); BLOOD UREA NITROGEN 16 mg/dl (7-20); CALCIUM 8.7 mg/dl (8.4-10.2); CARBON DIOXIDE 31 mmol/L (21-31); CHLORIDE 106 mmol/L (97-110); CREATININE 0.79 mg/dl (0.44-1.00); GLUCOSE 158 mg/dl (70-220); MAGNESIUM 1.3 mg/dl (1.7-2.5); PHOSPHORUS 2.8 mg/dl (2.5-4.9); POTASSIUM 5.1 mmol/L (3.5-5.1); SODIUM 147 mmol/L (135-144)
[2017-09-16] MEDS: MAGNESIUM OXIDE 400 MG TAB PO (12:17)
[2017-09-16] MEDS: COLLAGENASE 30 GM TUBE TOP (12:17)
[2017-09-16] MEDS: MAGNESIUM SULFATE 4 GM/100 ML 100 ML IVPB (13:00)
== END 2017-09-16 16:00 | DRG 388 ==
LOC: PP2 21:54 → E/R 16:38
PROC: 0D9670Z Drainage of Stomach with Drainage Device, Via Natural or Artificial Opening (ICD-10-PCS; principal; 2017-09-05)
DX: K56.50 Intestinal adhesions [bands], unspecified as to partial versus complete obstruction (principal); J18.9 Pneumonia, unspecified organism; N17.9 Acute kidney failure, unspecified; G92 Toxic encephalopathy; I11.0 Hypertensive heart disease with heart failure; E87.0 Hyperosmolality and hypernatremia; I50.9 Heart failure, unspecified; K81.9 Cholecystitis, unspecified; E11.42 Type 2 diabetes mellitus with diabetic polyneuropathy; N39.0 Urinary tract infection, site not specified; F11.20 Opioid dependence, uncomplicated; J44.1 Chronic obstructive pulmonary disease with (acute) exacerbation; L97.919 Non-pressure chronic ulcer of unspecified part of right lower leg with unspecified severity; L97.929 Non-pressure chronic ulcer of unspecified part of left lower leg with unspecified severity; Z99.81 Dependence on supplemental oxygen; I83.008 Varicose veins of unspecified lower extremity with ulcer other part of lower leg; E66.01 Morbid (severe) obesity due to excess calories; E86.0 Dehydration; E78.5 Hyperlipidemia, unspecified; E87.6 Hypokalemia; F41.9 Anxiety disorder, unspecified; F32.9 Major depressive disorder, single episode, unspecified; G89.4 Chronic pain syndrome; I25.10 Atherosclerotic heart disease of native coronary artery without angina pectoris; I73.9 Peripheral vascular disease, unspecified; K21.9 Gastro-esophageal reflux disease without esophagitis; K56.41 Fecal impaction; K57.90 Diverticulosis of intestine, part unspecified, without perforation or abscess without bleeding; M51.37 Other intervertebral disc degeneration, lumbosacral region; M19.90 Unspecified osteoarthritis, unspecified site; N76.1 Subacute and chronic vaginitis; R53.81 Other malaise; Z74.09 Other reduced mobility; Z87.891 Personal history of nicotine dependence; Z86.718 Personal history of other venous thrombosis and embolism; Z86.711 Personal history of pulmonary embolism; Z91.14 Patient's other noncompliance with medication regimen; Z68.34 Body mass index [BMI] 34.0-34.9, adult; Z79.84 Long term (current) use of oral hypoglycemic drugs; Z79.02 Long term (current) use of antithrombotics/antiplatelets
CPT/HCPCS: 71045; 71250; 74018; 74176; 74250; 76705; 80048; 80053; 81001; 81003; 82150; 82570; 83605; 83690; 83735; 83880; 84100; 84155; 84300; 84443; 85025; 85610; 85730; 87081; 87086; 89190; 96374; 99285-25

== ENCOUNTER 2017-09-23 23:12 | Inpatient (IN) | payer MEDICARE, OTHER ==
[2017-09-24 00:50] LABS: ADD MAN DIFF? NO
[2017-09-24 00:52] LABS: ABNORMAL IP MESSAGE 1; BASOPHILS % 0.2 % (0.0-2.0); EOSINOPHILS % 0.7 % (0.0-7.0); HEMATOCRIT 28.5 % (37.0-47.0); HEMOGLOBIN 8.8 g/dl (12.0-16.0); LYMPHOCYTES # 1.3 10^3/ul (0.8-2.9); LYMPHOCYTES % 22.2 % (15.0-51.0); MEAN CORPUSCULAR HEMOGLOBIN 29.7 pg (29.0-33.0); MEAN CORPUSCULAR HGB CONC 30.9 g/dl (32.0-37.0); MEAN CORPUSCULAR VOLUME 96.3 fl (82.0-101.0); MEAN PLATELET VOLUME 10.8 fl (7.4-10.4); MONOCYTE # 0.4 10^3/ul (0.3-0.9); MONOCYTES % 6.8 % (0.0-11.0); NEUTROPHIL # 4.1 10^3/ul (1.6-7.5); NEUTROPHILS % 69.8 % (39.0-77.0); RED BLOOD COUNT 2.96 10^6/ul (4.20-5.40); RED CELL DISTRIBUTION WIDTH 16.9 % (11.5-14.5)
[2017-09-24 00:52] LABS: WHITE BLOOD COUNT 5.9 10^3/ul (4.8-10.8)
[2017-09-24 01:00] LABS: PLATELET COUNT 84 10^3/UL (140-415); POSITIVE DIFF @See below
[2017-09-24 01:12] LABS: LACTIC ACID 1.7 mmol/L (0.5-2.0)
[2017-09-24 01:15] LABS: ALANINE AMINOTRANSFERASE 15 IU/L (13-69); ALBUMIN 3.2 g/dl (3.3-4.9); ALBUMIN/GLOBULIN RATIO 0.96; ALKALINE PHOSPHATASE 105 IU/L (42-121); ANION GAP 18 (8-16); ASPARTATE AMINO TRANSFERASE 25 IU/L (15-46); BLOOD UREA NITROGEN 40 mg/dl (7-20); CALCIUM 8.3 mg/dl (8.4-10.2); CARBON DIOXIDE 26 mmol/L (21-31); CHLORIDE 106 mmol/L (97-110); GLUCOSE 103 mg/dl (70-220); INR 2.34; PARTIAL THROMBOPLASTIN TIME 54.3 Sec (25.0-35.0); POTASSIUM 4.3 mmol/L (3.5-5.1); PROTIME 26.3 Sec (11.9-14.9); PT RATIO 2.1; SODIUM 146 mmol/L (135-144); TOTAL PROTEIN 6.5 g/dl (6.1-8.1)
[2017-09-24 01:31] LABS: TROPONIN-I < 0.012 ng/ml (0.00-0.12)
[2017-09-24] MEDS ORDERED: DOCUSATE SODIUM 100 MG CAP PO (02:30)
[2017-09-24] MEDS: VANCOMYCIN 1 GM (PMX) 250 ML IVPB (02:30)
[2017-09-24] MEDS ORDERED: NACL 0.9% 3 ML SYG IV (02:30)
[2017-09-24] MEDS ORDERED: BISACODYL (EC) 5 MG TAB PO (02:30)
[2017-09-24] MEDS ORDERED: ONDANSETRON 4 MG INJ IV (02:30)
[2017-09-24 03:40] LABS: LACTIC ACID 1.2 mmol/L (0.5-2.0)
[2017-09-24 03:49] LABS: B-TYPE NATRIURETIC PEPTIDE 2570 PG/ML (0-125)
[2017-09-24] MEDS: AZTREONAM 1 GM/NS (PMX) 50 ML IVPB ×3 (07:00→10:26)
[2017-09-24] MEDS: ACETAMINOPHEN 325 MG TAB PO ×2 (07:00→12:10)
[2017-09-24] MEDS ORDERED: VANCOMYCIN IV PER PHARMACY XX (07:00)
[2017-09-24] MEDS: FUROSEMIDE 40 MG INJ IV ×2 (08:15→17:18)
[2017-09-24] MEDS: METHADONE 10 MG TAB PO ×4 (08:49→20:51)
[2017-09-24 10:05] LABS: HEMOGLOBIN A1C 5.7 % (0-5.9)
[2017-09-24 10:08] LABS: IRON 22 ug/dl (35-150)
[2017-09-24 10:18] LABS: % IRON SATURATION 8 % SAT (22-52); TOTAL IRON BINDING CAPACITY 266 ug/dl (241-421)
[2017-09-24 10:45] LABS: FERRITIN 70.7 ng/ml (11.1-264.0)
[2017-09-24 14:38] LABS: ADD UMIC YES; UR ASCORBIC ACID NEGATIVE (NEGATIVE); UR BACTERIA MODERATE /HPF (NONE SEEN); UR BILIRUBIN (Dip) NEGATIVE (NEGATIVE); UR BLOOD (Dip) 3+ mg/dL (NEGATIVE); UR CLARITY CLOUDY (CLEAR); UR COLOR YELLOW (YELLOW); UR GLUCOSE (Dip) NEGATIVE (NEGATIVE); UR KETONES (Dip) NEGATIVE (NEGATIVE); UR LEUKOCYTE ESTERASE (Dip) 3+ Leu/ul (NEGATIVE); UR NITRITE (Dip) NEGATIVE (NEGATIVE); UR RBC 12 /HPF (0-5); UR SPECIFIC GRAVITY (Dip) 1.009 (1.003-1.030); UR SQUAMOUS EPITHELIAL CELL MANY /HPF (FEW); UR TOTAL PROTEIN (Dip) 1+ mg/dl (NEGATIVE); UR UROBILINOGEN (Dip) NEGATIVE (NEGATIVE); UR WBC 53 /HPF (0-5)
[2017-09-24] MEDS: VANCOMYCIN 1.25 GM in SOD CHLORIDE 0.9% 250 ML IVPB (16:40)
[2017-09-24] MEDS: RIVAROXABAN 20 MG TABLET PO (17:17)
[2017-09-24 18:13] LABS: CREATINE KINASE 26 IU/L (23-200)
[2017-09-24 18:23] LABS: CK INDEX 3.1; CK-MB 0.81 ng/ml (0.0-2.4)
[2017-09-24 18:32] LABS: TROPONIN-I < 0.012 ng/ml (0.00-0.12)
[2017-09-24] MEDS: ALBUTEROL/IPRATROPIUM (NEB) 3 ML AMP HHN (20:23)
[2017-09-24] MEDS: MEROPENEM 500MG/50 ML (PMX) 50 ML IVPB (21:27)
[2017-09-25] MEDS: ALBUTEROL/IPRATROPIUM (NEB) 3 ML AMP HHN ×6 (00:34→20:32)
[2017-09-25] MEDS: FUROSEMIDE 20 MG INJ IV (01:14)
[2017-09-25 01:20] LABS: CREATINE KINASE 20 IU/L (23-200)
[2017-09-25 01:31] LABS: CK INDEX 3.7; CK-MB 0.74 ng/ml (0.0-2.4)
[2017-09-25 01:38] LABS: TROPONIN-I < 0.012 ng/ml (0.00-0.12)
[2017-09-25] MEDS: ACETAMINOPHEN 325 MG TAB PO (03:13)
[2017-09-25] MEDS: FUROSEMIDE 40 MG INJ IV ×2 (04:50→18:20)
[2017-09-25] MEDS ORDERED: ENOXAPARIN 30 MG/0.3 ML SYG SC (09:00)
[2017-09-25] MEDS: METHADONE 10 MG TAB PO (09:01)
[2017-09-25] MEDS: MEROPENEM 500MG/50 ML (PMX) 50 ML IVPB ×2 (09:01→20:28)
[2017-09-25 09:13] LABS: ADD MAN DIFF? NO
[2017-09-25 09:17] LABS: BASOPHILS % 0.2 % (0.0-2.0); EOSINOPHILS # 0.1 10^3/ul (0.0-0.5); EOSINOPHILS % 1.1 % (0.0-7.0); HEMATOCRIT 33.6 % (37.0-47.0); HEMOGLOBIN 10.1 g/dl (12.0-16.0); LYMPHOCYTES # 1.4 10^3/ul (0.8-2.9); LYMPHOCYTES % 29.1 % (15.0-51.0); MEAN CORPUSCULAR HEMOGLOBIN 28.9 pg (29.0-33.0); MEAN CORPUSCULAR HGB CONC 30.1 g/dl (32.0-37.0); MEAN PLATELET VOLUME 10.3 fl (7.4-10.4); MONOCYTE # 0.5 10^3/ul (0.3-0.9); MONOCYTES % 10.1 % (0.0-11.0); NEUTROPHIL # 2.7 10^3/ul (1.6-7.5); NEUTROPHILS % 59.1 % (39.0-77.0); PLATELET COUNT 107 10^3/UL (140-415); RED CELL DISTRIBUTION WIDTH 16.5 % (11.5-14.5)
[2017-09-25 09:17] LABS: WHITE BLOOD COUNT 4.6 10^3/ul (4.8-10.8)
[2017-09-25 09:40] LABS: ALANINE AMINOTRANSFERASE 25 IU/L (13-69); ALBUMIN 3.7 g/dl (3.3-4.9); ALKALINE PHOSPHATASE 122 IU/L (42-121); ANION GAP 18 (8-16); ASPARTATE AMINO TRANSFERASE 25 IU/L (15-46); BILIRUBIN,INDIRECT 0.1 mg/dl (0-1.1); BILIRUBIN,TOTAL 0.1 mg/dl (0.2-1.3); BLOOD UREA NITROGEN 32 mg/dl (7-20); CALCIUM 8.7 mg/dl (8.4-10.2); CARBON DIOXIDE 35 mmol/L (21-31); CHLORIDE 99 mmol/L (97-110); CREATININE 1.04 mg/dl (0.44-1.00); GLUCOSE 109 mg/dl (70-220); MAGNESIUM 1.4 mg/dl (1.7-2.5); POTASSIUM 3.6 mmol/L (3.5-5.1); SODIUM 148 mmol/L (135-144); TOTAL PROTEIN 7.8 g/dl (6.1-8.1)
[2017-09-25] MEDS: METHADONE 5 MG TAB PO ×3 (13:14→20:28)
[2017-09-25] MEDS: COLLAGENASE 30 GM TUBE TOP (15:15)
[2017-09-25] MEDS: VANCOMYCIN 1.25 GM in SOD CHLORIDE 0.9% 250 ML IVPB (15:46)
[2017-09-25] MEDS: RIVAROXABAN 20 MG TABLET PO (17:21)
[2017-09-26] MEDS: ALBUTEROL/IPRATROPIUM (NEB) 3 ML AMP HHN ×6 (00:15→20:18)
[2017-09-26] MEDS: FUROSEMIDE 40 MG INJ IV ×2 (05:37→17:46)
[2017-09-26 07:27] LABS: ADD MAN DIFF? NO
[2017-09-26 07:42] LABS: WHITE BLOOD COUNT 5.1 10^3/ul (4.8-10.8)
[2017-09-26 07:42] LABS: BASOPHILS % 0.4 % (0.0-2.0); EOSINOPHILS # 0.2 10^3/ul (0.0-0.5); HEMATOCRIT 32.4 % (37.0-47.0); LYMPHOCYTES # 1.9 10^3/ul (0.8-2.9); LYMPHOCYTES % 38.3 % (15.0-51.0); MEAN CORPUSCULAR HEMOGLOBIN 29.2 pg (29.0-33.0); MEAN CORPUSCULAR HGB CONC 30.9 g/dl (32.0-37.0); MEAN CORPUSCULAR VOLUME 94.7 fl (82.0-101.0); MEAN PLATELET VOLUME 9.9 fl (7.4-10.4); MONOCYTE # 0.5 10^3/ul (0.3-0.9); MONOCYTES % 9.7 % (0.0-11.0); NEUTROPHIL # 2.4 10^3/ul (1.6-7.5); NEUTROPHILS % 47.8 % (39.0-77.0); PLATELET COUNT 123 10^3/UL (140-415); RED BLOOD COUNT 3.42 10^6/ul (4.20-5.40)
[2017-09-26 07:47] LABS: POSITIVE DIFF @See below
[2017-09-26 08:08] LABS: ANION GAP 18 (8-16); BLOOD UREA NITROGEN 30 mg/dl (7-20); CALCIUM 8.6 mg/dl (8.4-10.2); CARBON DIOXIDE 37 mmol/L (21-31); CHLORIDE 98 mmol/L (97-110); CREATININE 1.01 mg/dl (0.44-1.00); GLUCOSE 117 mg/dl (70-220); MAGNESIUM 1.5 mg/dl (1.7-2.5); POTASSIUM 3.6 mmol/L (3.5-5.1); SODIUM 149 mmol/L (135-144)
[2017-09-26] MEDS: METHADONE 5 MG TAB PO ×3 (08:09→21:34)
[2017-09-26] MEDS: COLLAGENASE 30 GM TUBE TOP (09:00)
[2017-09-26 09:43] LABS: ANISOCYTOSIS 1+ (0-0); EOSINOPHILS % (M) 3 % (0-7); GIANT THROMBO% (M) 1 % (0-0); HYPOCHROMASIA 1+ (0-0); LYMPHOCYTES #M 1.6 10^3/ul (0.8-2.9); LYMPHOCYTES % (M) 32 % (15-51); MICROCYTOSIS 1+ (0-0); MONOCYTE #M 0.7 10^3/ul (0.3-0.9); MONOCYTES % (M) 14 % (0-11); PLATELET ESTIMATE DECREASED; POLYCHROMASIA 1+ (0-0); REACTIVE LYMPHOCYTES #M 0.2 10^3/ul (0.0-0.0); REACTIVE LYMPHOCYTES% (M) 4 % (0-0); SEGMENTED NEUTROPHILS (M) % 47 % (39-77); SMUDGE%M 3 % (0-0)
[2017-09-26] MEDS: MEROPENEM 500MG/50 ML (PMX) 50 ML IVPB ×2 (10:16→21:34)
[2017-09-26] MEDS ORDERED: POLYETHYLENE GLYCOL 17 GM PACKET PO (14:30)
[2017-09-26] MEDS: MAGNESIUM SULFATE 2 GM/50 ML 50 ML IVPB (14:38)
[2017-09-26] MEDS: VANCOMYCIN 1.25 GM in SOD CHLORIDE 0.9% 250 ML IVPB (16:44)
[2017-09-26] MEDS: ACETAMINOPHEN 325 MG TAB PO (17:08)
[2017-09-26] MEDS: RIVAROXABAN 20 MG TABLET PO (17:46)
[2017-09-26] MEDS: SENNA TAB PO (21:34)
[2017-09-27] MEDS: ACETAMINOPHEN 325 MG TAB PO ×3 (00:29→18:24)
[2017-09-27] MEDS: ALBUTEROL/IPRATROPIUM (NEB) 3 ML AMP HHN ×6 (00:39→20:25)
[2017-09-27] MEDS: FUROSEMIDE 40 MG INJ IV (06:26)
[2017-09-27] MEDS: METHADONE 5 MG TAB PO ×3 (07:53→22:44)
[2017-09-27] MEDS: SENNA TAB PO ×2 (08:50→22:43)
[2017-09-27] MEDS: MEROPENEM 500MG/50 ML (PMX) 50 ML IVPB ×2 (08:50→22:43)
[2017-09-27] MEDS: COLLAGENASE 30 GM TUBE TOP (08:56)
[2017-09-27 11:53] LABS: WHITE BLOOD COUNT 6.5 10^3/ul (4.8-10.8)
[2017-09-27 11:53] LABS: HEMATOCRIT 34.1 % (37.0-47.0); HEMOGLOBIN 10.6 g/dl (12.0-16.0); MEAN CORPUSCULAR HGB CONC 31.1 g/dl (32.0-37.0); MEAN CORPUSCULAR VOLUME 93.4 fl (82.0-101.0); MEAN PLATELET VOLUME 9.7 fl (7.4-10.4); PLATELET COUNT 163 10^3/UL (140-415); RED BLOOD COUNT 3.65 10^6/ul (4.20-5.40); RED CELL DISTRIBUTION WIDTH 15.9 % (11.5-14.5)
[2017-09-27 11:55] LABS: POSITIVE DIFF @See below
[2017-09-27 11:56] LABS: ADD MAN DIFF? YES
[2017-09-27 12:18] LABS: BLOOD UREA NITROGEN 27 mg/dl (7-20); CALCIUM 8.8 mg/dl (8.4-10.2); CHLORIDE 95 mmol/L (97-110); CREATININE 1.14 mg/dl (0.44-1.00); GLUCOSE 141 mg/dl (70-220); POTASSIUM 3.9 mmol/L (3.5-5.1); SODIUM 143 mmol/L (135-144)
[2017-09-27 12:25] LABS: ANION GAP 17 (8-16)
[2017-09-27 12:29] LABS: CARBON DIOXIDE 35 mmol/L (21-31)
[2017-09-27 13:11] LABS: BAND NEUTROPHILS #M 0.1 10^3/ul (0.0-0.6); BAND NEUTROPHILS % (M) 3 % (0-4); BASOPHILS % (M) 1 % (0-2); EOSINOPHILS % (M) 2 % (0-7); LYMPHOCYTES #M 2.2 10^3/ul (0.8-2.9); LYMPHOCYTES % (M) 35 % (15-51); MONOCYTE #M 0.1 10^3/ul (0.3-0.9); MONOCYTES % (M) 2 % (0-11); MYELOCYTES % (M) 1 % (0-0); PLATELET ESTIMATE NORMAL; POLYCHROMASIA 3+ (0-0); REACTIVE LYMPHOCYTES #M 0.5 10^3/ul (0.0-0.0); REACTIVE LYMPHOCYTES% (M) 8 % (0-0); SEG NEUT #M 3.1 10^3/ul (1.6-7.5); SEGMENTED NEUTROPHILS (M) % 48 % (39-77); SMUDGE%M 3 % (0-0)
[2017-09-27 16:04] LABS: VANCOMYCIN,TROUGH 13.5 ug/ml (10.0-20.0)
[2017-09-27] MEDS: VANCOMYCIN 1.25 GM in SOD CHLORIDE 0.9% 250 ML IVPB (16:25)
[2017-09-27] MEDS: RIVAROXABAN 20 MG TABLET PO (18:24)
[2017-09-28] MEDS: ALBUTEROL/IPRATROPIUM (NEB) 3 ML AMP HHN ×6 (01:00→21:30)
[2017-09-28] MEDS: ACETAMINOPHEN 325 MG TAB PO ×2 (03:47→10:05)
[2017-09-28] MEDS: SENNA TAB PO ×2 (08:24→21:01)
[2017-09-28] MEDS: FUROSEMIDE 40 MG INJ IV (08:24)
[2017-09-28] MEDS: METHADONE 5 MG TAB PO ×3 (08:24→21:01)
[2017-09-28] MEDS: COLLAGENASE 30 GM TUBE TOP (09:00)
[2017-09-28] MEDS: MEROPENEM 500MG/50 ML (PMX) 50 ML IVPB ×2 (09:33→21:02)
[2017-09-28] MEDS: PHENAZOPYRIDINE 100 MG TAB PO ×2 (14:23→21:01)
[2017-09-28] MEDS: ACETAMINOPHEN 1000MG/100ML IV 100 ML IVPB ×2 (14:26→21:00)
[2017-09-28] MEDS: RIVAROXABAN 20 MG TABLET PO (18:04)
[2017-09-29] MEDS: ALBUTEROL/IPRATROPIUM (NEB) 3 ML AMP HHN ×3 (01:17→08:19)
[2017-09-29] MEDS: ACETAMINOPHEN 325 MG TAB PO (02:06)
[2017-09-29] MEDS: ACETAMINOPHEN 1000MG/100ML IV 100 ML IVPB ×2 (03:30→08:48)
[2017-09-29] MEDS: PHENAZOPYRIDINE 100 MG TAB PO ×2 (08:31→12:45)
[2017-09-29] MEDS: METHADONE 5 MG TAB PO ×2 (08:31→12:45)
[2017-09-29] MEDS: SENNA TAB PO (08:31)
[2017-09-29] MEDS: COLLAGENASE 30 GM TUBE TOP (08:32)
[2017-09-29] MEDS: FUROSEMIDE 40 MG INJ IV (08:32)
[2017-09-29] MEDS: MEROPENEM 500MG/50 ML (PMX) 50 ML IVPB (09:00)
== END 2017-09-29 14:27 | DRG 871 ==
LOC: E/R 23:12 → TEL 09-25 21:00 → ICU 09-24 02:15 → TEL 09-24 18:50
DX: A41.9 Sepsis, unspecified organism (principal); I50.33 Acute on chronic diastolic (congestive) heart failure; J96.01 Acute respiratory failure with hypoxia; G93.40 Encephalopathy, unspecified; J18.9 Pneumonia, unspecified organism; N39.0 Urinary tract infection, site not specified; J44.0 Chronic obstructive pulmonary disease with (acute) lower respiratory infection; F11.20 Opioid dependence, uncomplicated; E11.9 Type 2 diabetes mellitus without complications; G89.4 Chronic pain syndrome; Z87.81 Personal history of (healed) traumatic fracture; Z99.3 Dependence on wheelchair; Z86.718 Personal history of other venous thrombosis and embolism; Z79.01 Long term (current) use of anticoagulants; Z86.711 Personal history of pulmonary embolism; Z87.891 Personal history of nicotine dependence; D64.9 Anemia, unspecified; D69.6 Thrombocytopenia, unspecified; Z87.440 Personal history of urinary (tract) infections; Z99.81 Dependence on supplemental oxygen; E66.01 Morbid (severe) obesity due to excess calories; Z68.32 Body mass index [BMI] 32.0-32.9, adult; Z95.0 Presence of cardiac pacemaker; Z87.19 Personal history of other diseases of the digestive system; I48.91 Unspecified atrial fibrillation; B96.20 Unspecified Escherichia coli [E. coli] as the cause of diseases classified elsewhere
CPT/HCPCS: 36415; 71045; 71250; 80048; 80053; 80202; 81001; 82550; 82553; 82728; 83036; 83540; 83605; 83735; 83880; 84484; 85025; 85610; 85730; 87040; 87086; 93005; 94640; 94664; 96365; 97162; 99285-25

== ENCOUNTER 2017-12-18 21:08 | Emergency (ER) | payer MEDICARE, OTHER | END 2017-12-18 22:23 | disposition home or self-care (01) | LOC: E/R 21:08 | DX: N30.00 Acute cystitis without hematuria (principal); J44.9 Chronic obstructive pulmonary disease, unspecified; I10 Essential (primary) hypertension; F17.210 Nicotine dependence, cigarettes, uncomplicated; E11.9 Type 2 diabetes mellitus without complications; I50.9 Heart failure, unspecified; E66.9 Obesity, unspecified; Z79.01 Long term (current) use of anticoagulants; Z68.26 Body mass index [BMI] 26.0-26.9, adult; Z79.84 Long term (current) use of oral hypoglycemic drugs | CPT/HCPCS: 99283 ==

== ENCOUNTER 2018-10-03 18:25 | Inpatient (IN) | payer MEDICARE, OTHER ==
[2018-10-03] MEDS: CEFEPIME 2GM/50 ML (PMX) 50 ML IVPB (19:02)
[2018-10-03] MEDS: SODIUM CHLORIDE 0.9% 1L BAG IV* (19:02)
[2018-10-03 19:05] LABS: ADD MAN DIFF? NO
[2018-10-03 19:15] LABS: ABNORMAL IP MESSAGE 1; BASOPHILS % 0.3 % (0.0-2.0); EOSINOPHILS % 0.1 % (0.0-7.0); HEMATOCRIT 40.3 % (37.0-47.0); HEMOGLOBIN 12.2 g/dl (12.0-16.0); LYMPHOCYTES # 0.5 10^3/ul (0.8-2.9); LYMPHOCYTES % 4.8 % (15.0-51.0); MEAN CORPUSCULAR HEMOGLOBIN 27.4 pg (29.0-33.0); MEAN CORPUSCULAR HGB CONC 30.3 g/dl (32.0-37.0); MEAN CORPUSCULAR VOLUME 90.6 fl (82.0-101.0); MEAN PLATELET VOLUME 9.8 fl (7.4-10.4); MONOCYTE # 0.8 10^3/ul (0.3-0.9); MONOCYTES % 7.5 % (0.0-11.0); NEUTROPHIL # 9.7 10^3/ul (1.6-7.5); NEUTROPHILS % 86.5 % (39.0-77.0); PLATELET COUNT 68 10^3/UL (140-415); RED BLOOD COUNT 4.45 10^6/ul (4.20-5.40); RED CELL DISTRIBUTION WIDTH 15.9 % (11.5-14.5)
[2018-10-03 19:15] LABS: WHITE BLOOD COUNT 11.2 10^3/ul (4.8-10.8)
[2018-10-03 19:16] LABS: POSITIVE DIFF @See below
[2018-10-03 19:29] LABS: LACTIC ACID 1.2 mmol/L (0.5-2.0)
[2018-10-03 19:34] LABS: INR 0.99; PROTIME 13.2 Sec (11.9-14.9)
[2018-10-03 19:35] LABS: PARTIAL THROMBOPLASTIN TIME 33.5 Sec (23.0-35.0)
[2018-10-03 19:40] LABS: ALANINE AMINOTRANSFERASE 15 IU/L (13-69); ALBUMIN 2.8 g/dl (3.3-4.9); ALBUMIN/GLOBULIN RATIO 1.03; ALKALINE PHOSPHATASE 67 IU/L (42-121); ANION GAP 7 (5-13); ASPARTATE AMINO TRANSFERASE 16 IU/L (15-46); BILIRUBIN,INDIRECT 0.4 mg/dl (0-1.1); BILIRUBIN,TOTAL 0.4 mg/dl (0.2-1.3); BLOOD UREA NITROGEN 10 mg/dl (7-20); CALCIUM 6.6 mg/dl (8.4-10.2); CARBON DIOXIDE 19 mmol/L (21-31); CHLORIDE 117 mmol/L (97-110); CREATININE 0.62 mg/dl (0.44-1.00); GLUCOSE 131 mg/dl (70-220); SODIUM 143 mmol/L (135-144); TOTAL PROTEIN 5.5 g/dl (6.1-8.1)
[2018-10-03 19:45] LABS: POTASSIUM 2.7 mmol/L (3.5-5.1)
[2018-10-03 19:50] LABS: TROPONIN-I 0.049 ng/ml (0.000-0.120)
[2018-10-03 20:01] LABS: BAND NEUTROPHILS #M 0.4 10^3/ul (0.0-0.6); BAND NEUTROPHILS % (M) 4 % (0-4); LYMPHOCYTES #M 0.3 10^3/ul (0.8-2.9); LYMPHOCYTES % (M) 3 % (15-51); MONOCYTE #M 0.5 10^3/ul (0.3-0.9); MONOCYTES % (M) 5 % (0-11); PLATELET ESTIMATE NORMAL; POIKILOCYTOSIS 1+ (0-0); POLYCHROMASIA 1+ (0-0); REACTIVE LYMPHOCYTES #M 0.1 10^3/ul (0.0-0.0); REACTIVE LYMPHOCYTES% (M) 1 % (0-0); SEG NEUT #M 9.8 10^3/ul (1.6-7.5); SEGMENTED NEUTROPHILS (M) % 87 % (39-77); SMUDGE%M 2 % (0-0); STOMATOCYTES 1+ (0-0)
[2018-10-03] MEDS: MAGNESIUM SULFATE 2 GM/50 ML 50 ML IVPB (20:04)
[2018-10-03] MEDS: POTASSIUM CHLORIDE 100 ML IVPB (20:04)
[2018-10-03] MEDS: OXYCODONE/ACETAMINOPHEN (10/325) TAB PO (20:10)
[2018-10-03 20:53] LABS: ADD UMIC YES; UR ASCORBIC ACID NEGATIVE (NEGATIVE); UR BACTERIA FEW /HPF (NONE SEEN); UR BILIRUBIN (Dip) NEGATIVE (NEGATIVE); UR BLOOD (Dip) NEGATIVE (NEGATIVE); UR CLARITY CLEAR (CLEAR); UR COLOR AMBER (YELLOW); UR GLUCOSE (Dip) NEGATIVE (NEGATIVE); UR KETONES (Dip) 1+ mg/dL (NEGATIVE); UR LEUKOCYTE ESTERASE (Dip) TRACE Leu/ul (NEGATIVE); UR NITRITE (Dip) POSITIVE (NEGATIVE); UR RBC 8 /HPF (0-5); UR SPECIFIC GRAVITY (Dip) 1.016 (1.003-1.030); UR TOTAL PROTEIN (Dip) 1+ mg/dl (NEGATIVE); UR UROBILINOGEN (Dip) 2+ mg/dL (NEGATIVE); UR WBC 108 /HPF (0-5)
[2018-10-03] MEDS ORDERED: ACETAMINOPHEN 325 MG TAB PO (21:00)
[2018-10-03] MEDS ORDERED: ONDANSETRON 4 MG INJ IV ×2 (21:00→23:30)
[2018-10-03 21:35] LABS: LACTIC ACID 0.8 mmol/L (0.5-2.0)
[2018-10-03] MEDS: METHADONE 10 MG TAB PO (22:54)
[2018-10-03] MEDS: PYRIDOXINE 50 MG TAB PO (23:30)
[2018-10-03] MEDS ORDERED: ALBUTEROL/IPRATROPIUM (NEB) 3 ML AMP HHN (23:30)
[2018-10-03] MEDS: PHENAZOPYRIDINE 200 MG TAB PO (23:30)
[2018-10-03] MEDS: POTASSIUM CHLORIDE (SR) 20 MEQ TAB PO (23:30)
[2018-10-03] MEDS ORDERED: NACL 0.9% 3 ML SYG IV (23:30)
[2018-10-03] MEDS: BISACODYL 10 MG SUPP PR (23:30)
[2018-10-04] MEDS: OXYCODONE/ACETAMINOPHEN (10/325) TAB PO ×6 (00:07→20:08)
[2018-10-04] MEDS: POTASSIUM CHLORIDE 100 ML IVPB ×2 (00:07→12:03)
[2018-10-04] MEDS: MEROPENEM 1 GM/50ML(PMX) 50 ML IVPB ×3 (01:06→21:08)
[2018-10-04] MEDS: SOD CHLORIDE 0.9% 250 ML IV (01:07)
[2018-10-04] MEDS: ACETAMINOPHEN 1000MG/100ML IV 100 ML IVPB (01:26)
[2018-10-04 01:47] LABS: LACTIC ACID 1.4 mmol/L (0.5-2.0)
[2018-10-04] MEDS: ACETAMINOPHEN 500 MG TAB PO (04:37)
[2018-10-04] MEDS: METHADONE 10 MG TAB PO ×3 (06:41→21:07)
[2018-10-04 06:55] LABS: WHITE BLOOD COUNT 15.6 10^3/ul (4.8-10.8)
[2018-10-04 06:56] LABS: ABNORMAL IP MESSAGE 1; HEMATOCRIT 39.5 % (37.0-47.0); HEMOGLOBIN 11.7 g/dl (12.0-16.0); MEAN CORPUSCULAR HGB CONC 29.6 g/dl (32.0-37.0); MEAN CORPUSCULAR VOLUME 91.2 fl (82.0-101.0); MEAN PLATELET VOLUME 11.5 fl (7.4-10.4); PLATELET COUNT 64 10^3/UL (140-415); RED BLOOD COUNT 4.33 10^6/ul (4.20-5.40); RED CELL DISTRIBUTION WIDTH 16.1 % (11.5-14.5)
[2018-10-04] MEDS ORDERED: DEXTROSE 50% 50 ML SYRINGE IV ×2 (07:00)
[2018-10-04] MEDS ORDERED: GLUCOSE GEL 15 GRAM TUBE BUCCAL (07:00)
[2018-10-04] MEDS ORDERED: GLUCOSE GEL 15 GRAM TUBE PO ×2 (07:00)
[2018-10-04] MEDS ORDERED: GLUCAGON 1 MG INJ IM (07:00)
[2018-10-04 07:07] LABS: ADD MAN DIFF? YES; POSITIVE DIFF @See below
[2018-10-04 07:21] LABS: ALANINE AMINOTRANSFERASE 13 IU/L (13-69); ALBUMIN 3.6 g/dl (3.3-4.9); ALBUMIN/GLOBULIN RATIO 1.02; ALKALINE PHOSPHATASE 78 IU/L (42-121); ANION GAP 11 (5-13); ASPARTATE AMINO TRANSFERASE 21 IU/L (15-46); BILIRUBIN,INDIRECT 0.4 mg/dl (0-1.1); BILIRUBIN,TOTAL 0.4 mg/dl (0.2-1.3); BLOOD UREA NITROGEN 15 mg/dl (7-20); CALCIUM 8.4 mg/dl (8.4-10.2); CARBON DIOXIDE 26 mmol/L (21-31); CHLORIDE 106 mmol/L (97-110); CREATININE 1.02 mg/dl (0.44-1.00); GLUCOSE 186 mg/dl (70-220); POTASSIUM 3.7 mmol/L (3.5-5.1); SODIUM 143 mmol/L (135-144); TOTAL PROTEIN 7.1 g/dl (6.1-8.1)
[2018-10-04] MEDS: PYRIDOXINE 50 MG TAB PO ×3 (07:30→23:30)
[2018-10-04] MEDS: PHENAZOPYRIDINE 200 MG TAB PO ×4 (07:30→23:30)
[2018-10-04] MEDS: MAGNESIUM OXIDE 400 MG TAB PO ×2 (08:11→21:07)
[2018-10-04] MEDS: PANTOPRAZOLE (EC) 40 MG TAB PO (08:11)
[2018-10-04 08:12] LABS: ANISOCYTOSIS 1+ (0-0); BAND NEUTROPHILS #M 1.7 10^3/ul (0.0-0.6); BAND NEUTROPHILS % (M) 11 % (0-4); LYMPHOCYTES #M 0.4 10^3/ul (0.8-2.9); LYMPHOCYTES % (M) 3 % (15-51); MICROCYTOSIS 1+ (0-0); MONOCYTE #M 1.5 10^3/ul (0.3-0.9); MONOCYTES % (M) 10 % (0-11); PLATELET ESTIMATE SIG DECREASED; POIKILOCYTOSIS 1+ (0-0); POLYCHROMASIA 3+ (0-0); ROULEAU 1+ (0-0); SEG NEUT #M 12.1 10^3/ul (1.6-7.5); SEGMENTED NEUTROPHILS (M) % 76 % (39-77); SMUDGE%M 1 % (0-0)
[2018-10-04] MEDS: LINAGLIPTIN 5 MG TABLET PO (08:12)
[2018-10-04] MEDS: metFORMIN 500 MG TAB PO ×2 (08:12→17:30)
[2018-10-04] MEDS: DULOXETINE 30 MG CAP DR PO (08:13)
[2018-10-04] MEDS: FUROSEMIDE 40 MG TAB PO (08:14)
[2018-10-04] MEDS: FERROUS SULFATE (EC) 325 MG TAB PO (09:00)
[2018-10-04] MEDS: SENNA TAB PO ×2 (09:00→21:07)
[2018-10-04] MEDS: ASCORBIC ACID 250 MG TAB PO (09:00)
[2018-10-04] MEDS: ZINC SULFATE 220 MG CAP PO (09:00)
[2018-10-04] MEDS: DOCUSATE SODIUM 100 MG CAP PO ×2 (09:00→21:07)
[2018-10-04] MEDS: NAPROXEN 500 MG TAB PO ×2 (09:00→21:07)
[2018-10-04] MEDS ORDERED: NON-FORMULARY/PATIENT OWN MED (Sitagliptin Phos/Metformin HCl (Janumet 50-1,000 mg Tablet) PO (09:00)
[2018-10-04] MEDS: RIVAROXABAN 20 MG TABLET PO (17:30)
[2018-10-04] MEDS ORDERED: NON-FORMULARY/PATIENT OWN MED (Rosuvastatin Calcium* (Crestor*) 10 MG) PO (21:00)
[2018-10-04] MEDS: TAMSULOSIN (SR) 0.4 MG CAP PO (21:00)
[2018-10-04] MEDS: ATORVASTATIN 40 MG TAB PO (21:07)
[2018-10-04] MEDS: BISACODYL 10 MG SUPP PR (23:30)
[2018-10-05] MEDS: OXYCODONE/ACETAMINOPHEN (10/325) TAB PO ×6 (00:08→20:18)
[2018-10-05] MEDS: METHADONE 10 MG TAB PO ×3 (06:11→22:07)
[2018-10-05 06:44] LABS: ADD MAN DIFF? NO
[2018-10-05 06:50] LABS: WHITE BLOOD COUNT 7.6 10^3/ul (4.8-10.8)
[2018-10-05 06:50] LABS: ABNORMAL IP MESSAGE 1; BASOPHIL # 0.1 10^3/ul (0.0-0.1); BASOPHILS % 0.8 % (0.0-2.0); EOSINOPHILS # 0.2 10^3/ul (0.0-0.5); EOSINOPHILS % 2.9 % (0.0-7.0); HEMATOCRIT 37.4 % (37.0-47.0); LYMPHOCYTES # 1.5 10^3/ul (0.8-2.9); LYMPHOCYTES % 19.5 % (15.0-51.0); MEAN CORPUSCULAR HEMOGLOBIN 27.4 pg (29.0-33.0); MEAN CORPUSCULAR HGB CONC 29.4 g/dl (32.0-37.0); MEAN CORPUSCULAR VOLUME 93.3 fl (82.0-101.0); MEAN PLATELET VOLUME 11.4 fl (7.4-10.4); MONOCYTE # 0.9 10^3/ul (0.3-0.9); MONOCYTES % 11.2 % (0.0-11.0); NEUTROPHIL # 4.9 10^3/ul (1.6-7.5); NEUTROPHILS % 65.2 % (39.0-77.0); RED BLOOD COUNT 4.01 10^6/ul (4.20-5.40); RED CELL DISTRIBUTION WIDTH 16.4 % (11.5-14.5)
[2018-10-05 06:51] LABS: PLATELET COUNT 57 10^3/UL (140-415); POSITIVE DIFF @See below
[2018-10-05 07:15] LABS: ANION GAP 6 (5-13); BLOOD UREA NITROGEN 30 mg/dl (7-20); CALCIUM 8.8 mg/dl (8.4-10.2); CARBON DIOXIDE 28 mmol/L (21-31); CHLORIDE 111 mmol/L (97-110); CREATININE 1.25 mg/dl (0.44-1.00); GLUCOSE 127 mg/dl (70-220); POTASSIUM 4.5 mmol/L (3.5-5.1); SODIUM 145 mmol/L (135-144)
[2018-10-05] MEDS: PYRIDOXINE 50 MG TAB PO ×2 (07:30→15:30)
[2018-10-05] MEDS: PHENAZOPYRIDINE 200 MG TAB PO ×3 (07:30→23:30)
[2018-10-05] MEDS: DOCUSATE SODIUM 100 MG CAP PO ×2 (09:00→20:22)
[2018-10-05] MEDS: FUROSEMIDE 40 MG TAB PO (09:00)
[2018-10-05] MEDS: ZINC SULFATE 220 MG CAP PO (09:00)
[2018-10-05] MEDS: SENNA TAB PO ×2 (09:00→20:22)
[2018-10-05] MEDS: ASCORBIC ACID 250 MG TAB PO (09:00)
[2018-10-05] MEDS: FERROUS SULFATE (EC) 325 MG TAB PO (09:00)
[2018-10-05] MEDS: metFORMIN 500 MG TAB PO ×2 (09:04→17:42)
[2018-10-05] MEDS: DULOXETINE 30 MG CAP DR PO (10:52)
[2018-10-05] MEDS: NAPROXEN 500 MG TAB PO (10:53)
[2018-10-05] MEDS: LINAGLIPTIN 5 MG TABLET PO (10:54)
[2018-10-05] MEDS: MEROPENEM 1 GM/50ML(PMX) 50 ML IVPB ×2 (10:54→20:22)
[2018-10-05] MEDS: MAGNESIUM OXIDE 400 MG TAB PO ×2 (10:54→20:22)
[2018-10-05] MEDS: PANTOPRAZOLE (EC) 40 MG TAB PO (10:54)
[2018-10-05] MEDS: SOD CHLORIDE 0.9% 500 ML IV (15:58)
[2018-10-05] MEDS: RIVAROXABAN 20 MG TABLET PO (17:42)
[2018-10-05] MEDS: TAMSULOSIN (SR) 0.4 MG CAP PO (20:22)
[2018-10-05] MEDS: ATORVASTATIN 40 MG TAB PO (20:22)
[2018-10-05] MEDS: hydrALAzine 20 MG INJ IV (22:08)
[2018-10-05] MEDS: BISACODYL 10 MG SUPP PR (23:30)
[2018-10-06] MEDS: POTASSIUM CHLORIDE (SR) 20 MEQ TAB PO (00:20)
[2018-10-06] MEDS: OXYCODONE/ACETAMINOPHEN (10/325) TAB PO ×5 (00:20→15:54)
[2018-10-06] MEDS: PYRIDOXINE 50 MG TAB PO ×4 (00:21→15:54)
[2018-10-06] MEDS ORDERED: PENDING SANTYL ORDER FOR WOUND CARE XX (04:30)
[2018-10-06] MEDS: METHADONE 10 MG TAB PO ×2 (06:08→14:10)
[2018-10-06] MEDS: PHENAZOPYRIDINE 200 MG TAB PO ×3 (07:30→15:30)
[2018-10-06] MEDS: PANTOPRAZOLE (EC) 40 MG TAB PO (08:19)
[2018-10-06] MEDS: FERROUS SULFATE (EC) 325 MG TAB PO (08:19)
[2018-10-06] MEDS: DOCUSATE SODIUM 100 MG CAP PO (08:19)
[2018-10-06] MEDS: DULOXETINE 30 MG CAP DR PO (08:19)
[2018-10-06] MEDS: LINAGLIPTIN 5 MG TABLET PO (08:22)
[2018-10-06] MEDS: metFORMIN 500 MG TAB PO (08:22)
[2018-10-06] MEDS: MAGNESIUM OXIDE 400 MG TAB PO (08:22)
[2018-10-06] MEDS: SENNA TAB PO (09:17)
[2018-10-06] MEDS: ASCORBIC ACID 250 MG TAB PO (09:17)
[2018-10-06] MEDS: MEROPENEM 1 GM/50ML(PMX) 50 ML IVPB (09:18)
[2018-10-06] MEDS: ZINC SULFATE 220 MG CAP PO (09:18)
[2018-10-06 09:48] LABS: HEMOGLOBIN A1C 6.1 % (0-5.9)
== END 2018-10-06 16:05 | DRG 872 ==
LOC: PP2 10-06 03:28 → E/R 18:25 → TEL 20:43
PROVIDERS: Internal Medicine
DX: A41.9 Sepsis, unspecified organism (principal); N39.0 Urinary tract infection, site not specified; N17.9 Acute kidney failure, unspecified; J44.9 Chronic obstructive pulmonary disease, unspecified; Z72.0 Tobacco use; E11.9 Type 2 diabetes mellitus without complications; R53.81 Other malaise; Z86.718 Personal history of other venous thrombosis and embolism; Z79.02 Long term (current) use of antithrombotics/antiplatelets; Z99.3 Dependence on wheelchair
CPT/HCPCS: 36415; 71045; 80048; 80053; 81001; 83036; 83605; 83735; 84484; 85025; 85610; 85730; 87040-91; 87081; 87086; 93005; 96374; 96375; 99291-25

== ENCOUNTER 2018-11-08 10:35 | Inpatient (IN) | payer MEDICARE, OTHER ==
[2018-11-08 11:51] LABS: ADD MAN DIFF? NO
[2018-11-08 11:53] LABS: ABNORMAL IP MESSAGE 1; BASOPHIL # 0.1 10^3/ul (0.0-0.1); BASOPHILS % 0.4 % (0.0-2.0); EOSINOPHILS % 0.1 % (0.0-7.0); HEMATOCRIT 39.4 % (37.0-47.0); LYMPHOCYTES # 1.1 10^3/ul (0.8-2.9); LYMPHOCYTES % 7.9 % (15.0-51.0); MEAN CORPUSCULAR HEMOGLOBIN 28.1 pg (29.0-33.0); MEAN CORPUSCULAR HGB CONC 30.5 g/dl (32.0-37.0); MEAN CORPUSCULAR VOLUME 92.3 fl (82.0-101.0); MEAN PLATELET VOLUME 10.1 fl (7.4-10.4); MONOCYTES % 7.6 % (0.0-11.0); NEUTROPHIL # 11.5 10^3/ul (1.6-7.5); NEUTROPHILS % 83.6 % (39.0-77.0); PLATELET COUNT 90 10^3/UL (140-415); RED BLOOD COUNT 4.27 10^6/ul (4.20-5.40); RED CELL DISTRIBUTION WIDTH 18.1 % (11.5-14.5)
[2018-11-08 11:53] LABS: WHITE BLOOD COUNT 13.8 10^3/ul (4.8-10.8)
[2018-11-08 11:54] LABS: POSITIVE DIFF @See below
[2018-11-08 12:11] LABS: ALANINE AMINOTRANSFERASE 13 IU/L (13-69); ALBUMIN 3.9 g/dl (3.3-4.9); ALBUMIN/GLOBULIN RATIO 1.05; ALKALINE PHOSPHATASE 95 IU/L (42-121); ANION GAP 8 (5-13); ASPARTATE AMINO TRANSFERASE 16 IU/L (15-46); BILIRUBIN,INDIRECT 0.3 mg/dl (0-1.1); BILIRUBIN,TOTAL 0.3 mg/dl (0.2-1.3); BLOOD UREA NITROGEN 21 mg/dl (7-20); CARBON DIOXIDE 29 mmol/L (21-31); CHLORIDE 103 mmol/L (97-110); CREATININE 0.94 mg/dl (0.44-1.00); GLUCOSE 211 mg/dl (70-220); POTASSIUM 4.3 mmol/L (3.5-5.1); SODIUM 140 mmol/L (135-144); TOTAL PROTEIN 7.6 g/dl (6.1-8.1)
[2018-11-08 12:12] LABS: INR 1.13; PROTIME 14.6 Sec (11.9-14.9); PT RATIO 1.1
[2018-11-08 12:20] LABS: PARTIAL THROMBOPLASTIN TIME 34.4 Sec (23.0-35.0)
[2018-11-08 12:22] LABS: TROPONIN-I < 0.012 ng/ml (0.000-0.120)
[2018-11-08 12:30] LABS: ADD UMIC YES; UR ASCORBIC ACID NEGATIVE (NEGATIVE); UR BACTERIA MANY /HPF (NONE SEEN); UR BILIRUBIN (Dip) NEGATIVE (NEGATIVE); UR BLOOD (Dip) 2+ mg/dL (NEGATIVE); UR CLARITY CLOUDY (CLEAR); UR COLOR YELLOW (YELLOW); UR GLUCOSE (Dip) NEGATIVE (NEGATIVE); UR KETONES (Dip) TRACE mg/dL (NEGATIVE); UR LEUKOCYTE ESTERASE (Dip) 3+ Leu/ul (NEGATIVE); UR MUCUS FEW /HPF (NONE SEEN); UR NITRITE (Dip) POSITIVE (NEGATIVE); UR RBC 24 /HPF (0-5); UR SPECIFIC GRAVITY (Dip) 1.017 (1.003-1.030); UR SQUAMOUS EPITHELIAL CELL FEW /HPF (FEW); UR TOTAL PROTEIN (Dip) 2+ mg/dl (NEGATIVE); UR UROBILINOGEN (Dip) NEGATIVE (NEGATIVE); UR WBC > 182 /HPF (0-5)
[2018-11-08] MEDS: SOD CHLORIDE 0.9% 1,000 ML IV (12:42)
[2018-11-08] MEDS: LEVOFLOXACIN 750MG/D5W (PMX) 150 ML IVPB (12:42)
[2018-11-08] MEDS ORDERED: OXYCODONE/ACETAMINOPHEN (5/325) TAB PO (13:30)
[2018-11-08] MEDS: OXYCODONE/ACETAMINOPHEN (10/325) TAB PO ×3 (13:31→20:25)
[2018-11-08] MEDS ORDERED: ONDANSETRON 4 MG INJ IV ×2 (14:30→15:30)
[2018-11-08] MEDS ORDERED: ACETAMINOPHEN 325 MG TAB PO (14:30)
[2018-11-08] MEDS ORDERED: ALBUTEROL/IPRATROPIUM (NEB) 3 ML AMP NEB (15:00)
[2018-11-08] MEDS ORDERED: BISACODYL 10 MG SUPP PR (15:00)
[2018-11-08] MEDS ORDERED: NA PHOSPHATE/BIPHOS 133 ML ENEMA PR (15:00)
[2018-11-08] MEDS ORDERED: MAGNESIUM HYDROXIDE 30ML CUP PO (15:30)
[2018-11-08] MEDS ORDERED: NACL 0.9% 3 ML SYG IV (15:30)
[2018-11-08] MEDS ORDERED: DOCUSATE SODIUM 100 MG CAP PO (15:30)
[2018-11-08] MEDS ORDERED: GLUCOSE GEL 15 GRAM TUBE BUCCAL (16:00)
[2018-11-08] MEDS ORDERED: DEXTROSE 50% 50 ML SYRINGE IV ×2 (16:00)
[2018-11-08] MEDS ORDERED: GLUCOSE GEL 15 GRAM TUBE PO ×2 (16:00)
[2018-11-08] MEDS ORDERED: GLUCAGON 1 MG INJ IM (16:00)
[2018-11-08] MEDS: ONDANSETRON 4 MG INJ IV (16:15)
[2018-11-08] MEDS: HYDROmorphONE 1 MG/ML SYG IV (16:15)
[2018-11-08] MEDS: MEROPENEM 1 GM/50ML(PMX) 50 ML IVPB ×2 (16:26→22:20)
[2018-11-08] MEDS: METHADONE 10 MG TAB PO ×2 (16:26→22:21)
[2018-11-08] MEDS: INSULIN ASPART [NOVOLOG] 3 ML PEN SC ×2 (18:00→20:47)
[2018-11-08] MEDS: RIVAROXABAN 20 MG TABLET PO (18:09)
[2018-11-08 19:03] LABS: LACTIC ACID 1.4 mmol/L (0.5-2.0)
[2018-11-08] MEDS: MAGNESIUM OXIDE 400 MG TAB PO (20:24)
[2018-11-08] MEDS: ATORVASTATIN 40 MG TAB PO (20:24)
[2018-11-08] MEDS: DOCUSATE SODIUM 100 MG CAP PO (20:29)
[2018-11-08] MEDS ORDERED: NON-FORMULARY/PATIENT OWN MED (Rosuvastatin Calcium* (Crestor*) 10 MG) PO (21:00)
[2018-11-09] MEDS: OXYCODONE/ACETAMINOPHEN (10/325) TAB PO ×6 (00:31→21:53)
[2018-11-09 06:10] LABS: ADD MAN DIFF? NO
[2018-11-09] MEDS: METHADONE 10 MG TAB PO ×3 (06:11→22:31)
[2018-11-09] MEDS: MEROPENEM 1 GM/50ML(PMX) 50 ML IVPB ×3 (06:11→21:53)
[2018-11-09 06:30] LABS: ABNORMAL IP MESSAGE 1; BASOPHILS % 0.4 % (0.0-2.0); EOSINOPHILS % 0.3 % (0.0-7.0); HEMATOCRIT 37.2 % (37.0-47.0); HEMOGLOBIN 11.6 g/dl (12.0-16.0); LYMPHOCYTES % 13.1 % (15.0-51.0); MEAN CORPUSCULAR HEMOGLOBIN 28.5 pg (29.0-33.0); MEAN CORPUSCULAR HGB CONC 31.2 g/dl (32.0-37.0); MEAN CORPUSCULAR VOLUME 91.4 fl (82.0-101.0); MEAN PLATELET VOLUME 12.3 fl (7.4-10.4); MONOCYTE # 0.8 10^3/ul (0.3-0.9); MONOCYTES % 10.9 % (0.0-11.0); NEUTROPHIL # 5.4 10^3/ul (1.6-7.5); NEUTROPHILS % 74.6 % (39.0-77.0); PLATELET COUNT 62 10^3/UL (140-415); RED BLOOD COUNT 4.07 10^6/ul (4.20-5.40)
[2018-11-09 06:30] LABS: WHITE BLOOD COUNT 7.3 10^3/ul (4.8-10.8)
[2018-11-09 06:37] LABS: MAGNESIUM 2.1 mg/dl (1.7-2.5)
[2018-11-09 06:37] LABS: PHOSPHORUS 2.9 mg/dl (2.5-4.9)
[2018-11-09 06:52] LABS: POSITIVE DIFF @See below
[2018-11-09] MEDS: INSULIN ASPART [NOVOLOG] 3 ML PEN SC ×4 (08:00→20:28)
[2018-11-09] MEDS: DOCUSATE SODIUM 100 MG CAP PO ×2 (08:26→20:29)
[2018-11-09] MEDS: ASCORBIC ACID 500 MG TAB PO (08:27)
[2018-11-09] MEDS: MULTIVITAMINS THERAPEUTIC TAB PO (08:27)
[2018-11-09] MEDS: FUROSEMIDE 40 MG TAB PO (08:36)
[2018-11-09] MEDS: MAGNESIUM OXIDE 400 MG TAB PO ×2 (08:36→20:29)
[2018-11-09] MEDS: FERROUS SULFATE (EC) 325 MG TAB PO (08:36)
[2018-11-09] MEDS: SACCHAROMYCES BOULARDII 250 MG CAP PO (08:36)
[2018-11-09] MEDS: DULOXETINE 30 MG CAP DR PO (08:36)
[2018-11-09] MEDS: FLUTICASONE 0.05% 16 GM NAS SPRAY NASAL (09:00)
[2018-11-09] MEDS: RIVAROXABAN 20 MG TABLET PO (17:51)
[2018-11-09] MEDS: FUROSEMIDE 20 MG INJ IV (17:52)
[2018-11-09] MEDS: ATORVASTATIN 40 MG TAB PO (20:29)
[2018-11-09] MEDS: ALBUTEROL/IPRATROPIUM (NEB) 3 ML AMP HHN (21:09)
[2018-11-09] MEDS: ACETYLCYSTEINE 20% 4 ML VIAL NEB (21:09)
[2018-11-10] MEDS: OXYCODONE/ACETAMINOPHEN (10/325) TAB PO ×5 (01:47→20:09)
[2018-11-10] MEDS: ALBUTEROL/IPRATROPIUM (NEB) 3 ML AMP HHN ×4 (01:51→20:00)
[2018-11-10] MEDS: ACETYLCYSTEINE 20% 4 ML VIAL NEB ×4 (01:51→20:00)
[2018-11-10] MEDS: MEROPENEM 1 GM/50ML(PMX) 50 ML IVPB ×3 (05:49→22:04)
[2018-11-10] MEDS: METHADONE 10 MG TAB PO ×3 (06:33→22:06)
[2018-11-10] MEDS: FUROSEMIDE 20 MG INJ IV ×2 (06:33→17:53)
[2018-11-10 07:30] LABS: ADD MAN DIFF? NO
[2018-11-10 07:42] LABS: ABNORMAL IP MESSAGE 1; BASOPHIL # 0.1 10^3/ul (0.0-0.1); EOSINOPHILS # 0.1 10^3/ul (0.0-0.5); EOSINOPHILS % 2.2 % (0.0-7.0); HEMOGLOBIN 10.8 g/dl (12.0-16.0); LYMPHOCYTES # 1.1 10^3/ul (0.8-2.9); LYMPHOCYTES % 22.5 % (15.0-51.0); MEAN CORPUSCULAR HEMOGLOBIN 28.5 pg (29.0-33.0); MEAN PLATELET VOLUME 11.9 fl (7.4-10.4); MONOCYTE # 0.7 10^3/ul (0.3-0.9); MONOCYTES % 12.8 % (0.0-11.0); NEUTROPHIL # 3.1 10^3/ul (1.6-7.5); NEUTROPHILS % 61.1 % (39.0-77.0); PLATELET COUNT 65 10^3/UL (140-415); RED BLOOD COUNT 3.79 10^6/ul (4.20-5.40); RED CELL DISTRIBUTION WIDTH 18.2 % (11.5-14.5)
[2018-11-10 07:42] LABS: WHITE BLOOD COUNT 5.1 10^3/ul (4.8-10.8)
[2018-11-10 07:47] LABS: POSITIVE DIFF @See below
[2018-11-10 07:54] LABS: ANION GAP 7 (5-13); BLOOD UREA NITROGEN 23 mg/dl (7-20); CALCIUM 8.4 mg/dl (8.4-10.2); CARBON DIOXIDE 28 mmol/L (21-31); CHLORIDE 106 mmol/L (97-110); CREATININE 0.92 mg/dl (0.44-1.00); GLUCOSE 188 mg/dl (70-220); MAGNESIUM 2.4 mg/dl (1.7-2.5); POTASSIUM 4.7 mmol/L (3.5-5.1); SODIUM 141 mmol/L (135-144)
[2018-11-10] MEDS: ACETAMINOPHEN 325 MG TAB PO (08:49)
[2018-11-10] MEDS: INSULIN ASPART [NOVOLOG] 3 ML PEN SC ×5 (08:54→22:29)
[2018-11-10] MEDS: DULOXETINE 30 MG CAP DR PO (08:55)
[2018-11-10] MEDS: MULTIVITAMINS THERAPEUTIC TAB PO (08:56)
[2018-11-10] MEDS: ASCORBIC ACID 500 MG TAB PO (08:56)
[2018-11-10] MEDS: SACCHAROMYCES BOULARDII 250 MG CAP PO (08:56)
[2018-11-10] MEDS: DOCUSATE SODIUM 100 MG CAP PO ×2 (08:56→20:08)
[2018-11-10] MEDS: MAGNESIUM OXIDE 400 MG TAB PO ×2 (08:56→20:08)
[2018-11-10] MEDS: FERROUS SULFATE (EC) 325 MG TAB PO (08:56)
[2018-11-10] MEDS: PHENAZOPYRIDINE 200 MG TAB PO (10:40)
[2018-11-10] MEDS: FLUTICASONE 0.05% 16 GM NAS SPRAY NASAL (12:16)
[2018-11-10] MEDS: RIVAROXABAN 20 MG TABLET PO (17:48)
[2018-11-10] MEDS: ATORVASTATIN 40 MG TAB PO (20:08)
[2018-11-10] MEDS: ACCU-CHEK XX (22:29)
[2018-11-11] MEDS: OXYCODONE/ACETAMINOPHEN (10/325) TAB PO ×4 (00:30→14:31)
[2018-11-11] MEDS: ACETYLCYSTEINE 20% 4 ML VIAL NEB ×3 (01:50→14:00)
[2018-11-11] MEDS: ALBUTEROL/IPRATROPIUM (NEB) 3 ML AMP HHN ×3 (01:50→14:00)
[2018-11-11] MEDS: MEROPENEM 1 GM/50ML(PMX) 50 ML IVPB ×2 (05:35→14:41)
[2018-11-11] MEDS: FUROSEMIDE 20 MG INJ IV (05:36)
[2018-11-11] MEDS: METHADONE 10 MG TAB PO ×2 (06:46→14:41)
[2018-11-11 07:14] LABS: ADD MAN DIFF? NO
[2018-11-11 07:15] LABS: ABNORMAL IP MESSAGE 1; BASOPHIL # 0.1 10^3/ul (0.0-0.1); EOSINOPHILS # 0.2 10^3/ul (0.0-0.5); HEMATOCRIT 38.4 % (37.0-47.0); HEMOGLOBIN 11.8 g/dl (12.0-16.0); LYMPHOCYTES # 1.4 10^3/ul (0.8-2.9); LYMPHOCYTES % 23.4 % (15.0-51.0); MEAN CORPUSCULAR HEMOGLOBIN 28.1 pg (29.0-33.0); MEAN CORPUSCULAR HGB CONC 30.7 g/dl (32.0-37.0); MEAN CORPUSCULAR VOLUME 91.4 fl (82.0-101.0); MEAN PLATELET VOLUME 10.9 fl (7.4-10.4); MONOCYTE # 0.6 10^3/ul (0.3-0.9); MONOCYTES % 9.8 % (0.0-11.0); NEUTROPHIL # 3.8 10^3/ul (1.6-7.5); NEUTROPHILS % 62.3 % (39.0-77.0); PLATELET COUNT 91 10^3/UL (140-415); RED CELL DISTRIBUTION WIDTH 17.4 % (11.5-14.5)
[2018-11-11 07:25] LABS: POSITIVE DIFF @See below
[2018-11-11 07:35] LABS: ANION GAP 9 (5-13); BLOOD UREA NITROGEN 24 mg/dl (7-20); CARBON DIOXIDE 31 mmol/L (21-31); CHLORIDE 102 mmol/L (97-110); CREATININE 0.81 mg/dl (0.44-1.00); GLUCOSE 249 mg/dl (70-220); POTASSIUM 3.8 mmol/L (3.5-5.1); SODIUM 142 mmol/L (135-144)
[2018-11-11] MEDS: SACCHAROMYCES BOULARDII 250 MG CAP PO (08:11)
[2018-11-11] MEDS: DULOXETINE 30 MG CAP DR PO (08:11)
[2018-11-11] MEDS: FLUTICASONE 0.05% 16 GM NAS SPRAY NASAL (08:11)
[2018-11-11] MEDS: MAGNESIUM OXIDE 400 MG TAB PO (08:11)
[2018-11-11] MEDS: DOCUSATE SODIUM 100 MG CAP PO (08:11)
[2018-11-11] MEDS: ASCORBIC ACID 500 MG TAB PO (08:12)
[2018-11-11] MEDS: MULTIVITAMINS THERAPEUTIC TAB PO (08:12)
[2018-11-11] MEDS: FERROUS SULFATE (EC) 325 MG TAB PO (08:12)
[2018-11-11] MEDS: INSULIN ASPART [NOVOLOG] 3 ML PEN SC ×2 (08:16→12:00)
[2018-11-11] MEDS: ACETAMINOPHEN 325 MG TAB PO (08:23)
== END 2018-11-11 15:50 | DRG 871 ==
LOC: E/R 10:35 → PP2 14:20
DX: A41.9 Sepsis, unspecified organism (principal); J18.9 Pneumonia, unspecified organism; I50.33 Acute on chronic diastolic (congestive) heart failure; N39.0 Urinary tract infection, site not specified; I50.30 Unspecified diastolic (congestive) heart failure; I48.91 Unspecified atrial fibrillation; D69.6 Thrombocytopenia, unspecified; I11.0 Hypertensive heart disease with heart failure; E11.9 Type 2 diabetes mellitus without complications; D63.8 Anemia in other chronic diseases classified elsewhere; B96.20 Unspecified Escherichia coli [E. coli] as the cause of diseases classified elsewhere; J44.9 Chronic obstructive pulmonary disease, unspecified; G89.4 Chronic pain syndrome; F17.210 Nicotine dependence, cigarettes, uncomplicated; I87.8 Other specified disorders of veins; E66.9 Obesity, unspecified; Z68.32 Body mass index [BMI] 32.0-32.9, adult; Z95.0 Presence of cardiac pacemaker; Z87.440 Personal history of urinary (tract) infections; Z86.711 Personal history of pulmonary embolism; Z90.710 Acquired absence of both cervix and uterus; Z86.718 Personal history of other venous thrombosis and embolism; Z79.4 Long term (current) use of insulin
CPT/HCPCS: 36415; 71045; 80048; 80053; 81001; 82962; 83605; 83735; 84100; 84484; 85025; 85610; 85730; 87040-91; 87086; 93005; 94640; 96374; 97162; 97165; 99285-25